=== PATIENT | female | born 1935 | race Caucasian/White ===

== ENCOUNTER 2018-01-24 14:16 | Inpatient (IN) | payer MEDICARE, OTHER ==
[2018-01-24 14:27] VITALS: BMI 26.5
--- NOTE | 2018-01-24 14:32 | PDOC ---
History of Present Illness - General Chief Complaint: Constipation Stated Complaint: CONSTIPATED, ABD PAIN Time Seen by Provider: 01/24/18 14:30 History Source: Patient - History of Present Illness Initial Comments: 01/24/18 14:46 82 year old female with a PMH of CAD (s/p stent), HTN, HLD, NIDDM and SCC, presents to our ED c/o 2 day h/o severe LLQ pain. Pain is constant, 10/10, sharp , worse with movement and localized to left lower quadrant. Patient notes a 5 day h/o constipation. Last bowel movement 3 days previous. Denies fevers/ chills, nausea/vomiting or dysuria/hematuria. Patient tolerating PO intake. Patient lives independently and has daily visits from a home health aide. At baseline she is able to complete her ADL's without assistance. Patient denies chest pain, shortness of breath, rectal bleeding, recent travel or sick contacts. NKDA Surgical: appendectomy, hysterectomy, cardiac stent Social: denies cigarettes, denies alcohol, denies recreational drugs PMD: Dr. Kenya Wilcox Past History - Past Medical History Allergies/Adverse Reactions: Allergies Allergy/AdvReac Type Severity Reaction Status Date / Time No Known Allergies Allergy Verified 01/24/18 14:27 Home Medications: Ambulatory Orders Amlodipine Besylate 10 mg PO DAILY 01/24/18 Bisacodyl [Laxative] 5 mg PO DAILY 01/24/18 Cholecalciferol (Vitamin D3) [Vitamin D3] 1,000 unit PO DAILY 01/24/18 Clopidogrel Bisulfate [Plavix -] 75 mg PO DAILY 01/24/18 Docusate Sodium 100 mg PO DAILY 01/24/18 Ferrous Sulfate 325 mg PO DAILY 01/24/18 Metformin HCl 500 mg PO BID 01/24/18 Metoprolol Tartrate 100 mg PO DAILY 01/24/18 Metoprolol Tartrate [Lopressor] 50 mg PO HS 01/24/18 Multivit-Min/Iron/Folic/Lutein [Centrum Silver Women Tablet] 1 each PO DAILY Psyllium Husk/Calcium Carb [Metamucil Plus Calcium Capsule] 1 each PO DAILY Rosuvastatin Calcium 10 mg PO DAILY 01/24/18 Sennosides [Senna Laxative] 2 tab PO DAILY 04/15/18 Valsartan 160 mg PO BID 01/24/18 Anemia: Yes Cardiac Disorders: Yes (2 stents, valves) COPD: No Diabetes: Yes HTN: Yes Hypercholesterolemia: Yes - Surgical History Cardiac Surgery: Yes (stent) - Suicide/Smoking/Psychosocial Hx Smoking History: Never smoked Information on smoking cessation initiated: No Hx Alcohol Use: No Drug/Substance Use Hx: No Substance Use Type: None Review of Systems - Review of Systems Constitutional: No: Chills, Fever HEENTM: No: Recent change in vision Respiratory: No: Cough, Shortness of Breath Cardiac (ROS): No: Chest Pain, Lightheadedness, Palpitations ABD/GI: Yes: Constipated. No: Diarrhea, Nausea, Vomiting : No: Burning, Dysuria *Physical Exam - Vital Signs Last Vital Signs Temp Pulse Resp BP Pulse Ox 97.6 F 89 18 137/87 97 01/24/18 14:23 01/24/18 14:23 01/24/18 14:23 01/24/18 14:23 01/24/18 14:23 - Physical Exam Comments: 01/24/18 20:06 GENERAL: Awake, alert, and fully oriented, in no acute distress HEAD: No signs of trauma EYES: PERRLA, EOMI, sclera anicteric, conjunctiva clear ENT: Auricles normal inspection, hearing grossly normal, nares patent, oropharynx clear without exudates. Moist mucosa NECK: Nontender, no stepoffs, Normal ROM, supple, no lymphadenopathy, JVD, or masses LUNGS: Breath sounds equal, clear to auscultation bilaterally. No wheezes, and no crackles HEART: Regular rate and rhythm, normal S1 and S2, no murmurs, rubs or gallops ABDOMEN: LLQ TTP w/guarding; Hyperactive BS EXTREMITIES: Normal range of motion, no edema. No clubbing or cyanosis. No cords, erythema, or tenderness SKIN: Warm, Dry, normal turgor, no rashes or lesions noted. ED Treatment Course - LABORATORY CBC & Chemistry Diagram: 01/24/18 15:00 01/24/18 14:47 Medical Decision Making - Medical Decision Making 01/24/18 15:00 82 year old non-toxic appearing female presents with LLQ abdominal pain + constipation. Physical exam significant for LLQ guarding + peritoneal signs and hyperactive BS. Frontal diagnosis: SBO, mesenteric ischemia, diverticulits , colitis possibly UTI/pyelo. Will check CBC, CMP, Lipase, Lactic Acid + CT scan. 01/24/18 16:42 WBC count 22.8 --> Zosyn for empiric coverage of presumed SBO. Patient remains afebrile, continues to decline pain medication. 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 01/24/18 18:[address] Avelar for further evaluation. 01/24/18 19:10 Patient's family counseled on POC. Will continue to monitor while in ED. 01/24/18 22:38 *DC/Admit/Observation/Transfer Diagnosis at time of Disposition: Diverticulitis - Referrals - Patient Instructions - Post Discharge Activity
--- NOTE | 2018-01-24 14:37 | PDOC ---
Attending Attestation - HPI HPI: 01/24/18 16:27 The patient is a 82 year old female, with a significant past medical history of , who presents to the emergency department with, 2 days of significant left lower quadrant pain. She describes her pain as a sharp, 10/10, constant pain which further worsens with movement. She reports to have been constipated for the past 5 days. She denies recent fevers, chills, headache or dizziness. She denies recent nausea, vomit, diarrhea. She denies recent dysuria, frequency, urgency or hematuria. She denies recent chest pain or shortness of breath. Allergies: NKA Past surgical history: Appendectomy. Hysterectomy. Cardiac stent. Social history: Nonsmoker. Denies EtOH use and recreational drug use. Primary Care Physician: Dr. Balderrama <Machelle Desai - Last Filed: 01/24/18 16:27> - Resident Resident Name: Graciela Hammond - ED Attending Attestation I have performed the following: I have examined & evaluated the patient, The case was reviewed & discussed with the resident, I agree w/resident's findings & plan, Exceptions are as noted - Physicial Exam PE: GENERAL: Awake, alert, and fully oriented, in no acute distress HEAD: No signs of trauma EYES: PERRLA, EOMI, sclera anicteric, conjunctiva clear ENT: Auricles normal inspection, hearing grossly normal, nares patent, oropharynx clear without exudates. Moist mucosa NECK: Normal ROM, supple, no lymphadenopathy, JVD, or masses LUNGS: Breath sounds equal, clear to auscultation bilaterally. No wheezes, and no crackles HEART: Regular rate and rhythm, normal S1 and S2, no murmurs, rubs or gallops ABDOMEN: Soft, distended, tympanitic, diffusely tender, +hyperactive bowel sounds. +Guarding, +rebound. No masses EXTREMITIES: Normal range of motion, no edema. No clubbing or cyanosis. No cords, erythema, or tenderness NEUROLOGICAL: Cranial nerves II through XII grossly intact. Normal speech, normal gait SKIN: Warm, Dry, normal turgor, no rashes or lesions noted. - Medical Decision Making Pt presents with abd pain. Found to have LLQ tenderness and hyperactive bowel sounds- diverticulitis vs SBO. Will obtain CT a/p to further evaluate. <Rosanna Yang - Last Filed: 01/29/18 07:25> Attestations - Attestations 01/24/18 16:28 Documentation prepared by Machelle Desai, acting as medical case worker for Rosanna Yang MD. <Machelle Desai - Last Filed: 01/24/18 16:27>
[2018-01-24 15:21] LABS: HEMOGLOBIN 12.2 GM/dL (10.7-15.3); MCH 31.1 pg (25.7-33.7); MCHC 34.8 g/dl (32.0-36.0); MEAN CELL VOLUME 89.4 fl (80-96); MEAN PLT VOLUME 9.7 fl (7.5-11.1); PLATELET COUNT 178 K/MM3 (134-434); RBC 3.91 M/mm3 (3.60-5.2); RDW 13.5 % (11.6-15.6); WHITE BLOOD COUNT 22.8 K/mm3 (4.0-10.0)
[2018-01-24 15:40] LABS: ALBUMIN 3.1 g/dl (3.4-5.0); ANION GAP 14 (8-16); BILIRUBIN,TOTAL 0.8 mg/dL (0.2-1.0); BLOOD UREA NITROGEN 16 mg/dL (7-18); CALCIUM 8.3 mg/dL (8.5-10.1); CHLORIDE 93 mmol/L (98-107); CO2 22 mmol/L (21-32); CREATININE 0.7 mg/dL (0.55-1.02); GLUCOSE,RANDOM 135 mg/dL (74-106); LIPASE 77 U/L (73-393); POTASSIUM 3.9 mmol/L (3.5-5.1); SGOT/AST 22 U/L (15-37); SGPT/ALT 13 U/L (12-78); SODIUM 129 mmol/L (136-145)
[2018-01-24 15:43] LABS: ALK PHOS 100 U/L (45-117); N-TERMINAL BNP 4113.16 pg/ml (5-450); TOT PROT 6.6 g/dl (6.4-8.2)
[2018-01-24 15:57] LABS: PLATELET ESTIMATE ADEQUATE
[2018-01-24] MEDS ORDERED: PIPERACILLIN/TAZOB 4.5 GM/100 ML PREMIX BAG IVPB ONE (16:33)
[2018-01-24 16:41] LABS: PH,URINE 5.5 (5.0-8.0); URINE APPEARANCE CLEAR; URINE BILIRUBIN 1+ (<2.0 mg/dL); URINE BLOOD TRACE-INTA (NEGATIVE); URINE COLOR LT. YELLOW; URINE GLUCOSE (UA) NEGATIVE (NEGATIVE); URINE KETONE 1+ (NEGATIVE); URINE NITRITE NEGATIVE (NEGATIVE); URINE UROBILINOGEN 0.2 mg/dL (0.2-1.0)
[2018-01-24 16:43] LABS: URINE LEUK ESTERASE TRACE (NEGATIVE); URINE PROTEIN 1+ (NEGATIVE)
[2018-01-24] MEDS ORDERED: PIPERACILLIN/TAZOB 4.5 GM 4.5 GM/100 ML BAG IVPB ONE (16:46)
[2018-01-24 17:01] LABS: EPI CELLS RARE /HPF (FEW)
[2018-01-24 17:02] LABS: URINE BACTERIA FEW /hpf (NONE SEEN); URINE MUCUS 1+
[2018-01-24] MEDS ORDERED: SODIUM CHLORIDE 0.9% 500 ML INFUS.BAG IV ONE (18:51)
--- NOTE | 2018-01-24 19:43 | PN ---
Teaching Attending Note Name of Resident: Niru Birmingham ATTENDING PHYSICIAN STATEMENT I saw and evaluated the patient. I reviewed the resident's note and discussed the case with the resident. I agree with the resident's findings and plan as documented. SUBJECTIVE: 82 yo F with pmhx. of CAD (s/p stent), Cardiac Valvular disorder, HTN, HLD, NIDDM, and SCC who presents with Left Lower Quadrant pain. States pain is 10/10 in severity. Also with associated constipation X 5 days. States last BM was 3 days ago. No nausea, vomiting, or diarrhea. No chest pain, pressure or shortness of breath. No fevers or chills. No urinary frequency or dysuria. OBJECTIVE: Physical: VS: Vital Signs Period Temp Pulse Resp BP Sys/Tom Pulse Ox Last 24 Hr 97.6 F-98.0 F 89-97 17-18 125-137/68-87 97-98 GEN: NAD, Resting in bed, AA0X3 HEENT: NCAT, PERRL, Throat without erythema or exudates CARD: II/ AD, RRR S1, S2 RESP:Mild bibasilar crackles ABD: BSx4, NTD to palpation, Mild- Distension EXT: - C/C/E CBCD WBC 22.8 K/mm3 (4.0-10.0) H 01/24/18 15:00 RBC 3.91 M/mm3 (3.60-5.2) 01/24/18 15:00 Hgb 12.2 GM/dL (10.7-15.3) 01/24/18 15:00 Hct 35.0 % (32.4-45.2) 01/24/18 15:00 MCV 89.4 fl (80-96) 01/24/18 15:00 MCHC 34.8 g/dl (32.0-36.0) 01/24/18 15:00 RDW 13.5 % (11.6-15.6) 01/24/18 15:00 Plt Count 178 K/MM3 (134-434) 01/24/18 15:00 MPV 9.7 fl (7.5-11.1) 01/24/18 15:00 CMP Sodium 129 mmol/L (136-145) L 01/24/18 14:47 Potassium 3.9 mmol/L (3.5-5.1) 01/24/18 14:47 Chloride 93 mmol/L (98-107) L 01/24/18 14:47 Carbon Dioxide 22 mmol/L (21-32) 01/24/18 14:47 Anion Gap 14 (8-16) 01/24/18 14:47 BUN 16 mg/dL (7-18) 01/24/18 14:47 Creatinine 0.7 mg/dL (0.55-1.02) 01/24/18 14:47 Creat Clearance w eGFR > 60 (>60) 01/24/18 14:47 Random Glucose 135 mg/dL (74-106) H 01/24/18 14:47 Calcium 8.3 mg/dL (8.5-10.1) L 01/24/18 14:47 Total Bilirubin 0.8 mg/dL (0.2-1.0) 01/24/18 14:47 AST 22 U/L (15-37) 01/24/18 14:47 ALT 13 U/L (12-78) 01/24/18 14:47 Alkaline Phosphatase 100 U/L (45-117) 01/24/18 14:47 Total Protein 6.6 g/dl (6.4-8.2) 01/24/18 14:47 Albumin 3.1 g/dl (3.4-5.0) L 01/24/18 14:47 CARDIAC ENZYMES Creatine Kinase 68 IU/L (26-192) 01/24/18 14:47 Troponin I < 0.02 ng/ml (0.00-0.05) 01/24/18 14:47 CT ABD/PELVIS- Sigmoid diverticulitis, Fecal Impaction CXR- PENDING EKG- PENDING Home Medications Medication Instructions Recorded Amlodipine Besylate 10 mg PO DAILY 01/24/18 Bisacodyl [Laxative] 5 mg PO DAILY 01/24/18 Cholecalciferol (Vitamin D3) 1,000 unit PO DAILY 01/24/18 [Vitamin D3] Clopidogrel Bisulfate [Plavix -] 75 mg PO DAILY 01/24/18 Docusate Sodium 100 mg PO DAILY 01/24/18 Ferrous Sulfate 325 mg PO DAILY 01/24/18 Metformin HCl 500 mg PO BID 01/24/18 Metoprolol Tartrate 100 mg PO DAILY 01/24/18 Metoprolol Tartrate [Lopressor] 50 mg PO HS 01/24/18 Multivit-Min/Iron/Folic/Lutein 1 each PO DAILY 01/24/18 [Centrum Silver Women Tablet] Psyllium Husk/Calcium Carb 1 each PO DAILY 01/24/18 [Metamucil Plus Calcium Capsule] Rosuvastatin Calcium 10 mg PO DAILY 01/24/18 Sennosides [Senna Laxative] 2 tab PO DAILY 01/24/18 Valsartan 160 mg PO BID 01/24/18 ASSESSMENT AND PLAN: 82 yo F with pmhx. of CAD (s/p stent), Cardiac Valvular disorder, HTN, HLD, NIDDM, and SCC who presents with diverticulitis 1.) Sepsis due to Diverticulitis - Levaquin/Flagyl - Monitor QtC - COLLAZO Cx - LA - Clear liquid diet 2.) Constipation/Impaction - Bowel Regimen 3.) NIDDM - FS - RAISS 4.) Hyponatremia - Urine/Serum OSm 5.) CAD s/P Stent - C/w Home meds - Awaiting EKG 5.) HLD - C/W Statin 6.) Hx. of SCC - As per outpt. Derm 7.) Dvt Ppx - Heparin [address] in Med-Sx
--- NOTE | 2018-01-24 20:05 | HP ---
CHIEF COMPLAINT: abdominal pain PCP: Dr. Kenya Wilcox HISTORY OF PRESENT ILLNESS: Patient is an 82 yo F with a PMHx of CAD (s/p stent) , "valve problem", HTN, HLD, DM, SCC, bleeding ulcers (10 years ago), and anemia , presented with 2 day onset of sharp, 10/10, constant LLQ abdominal pain that gets worse with movement. History taken from daughter. Daughter states patient has been constipated the last 5 days. Patient also has nausea with 1 episode of clear vomiting yesterday. Last colonoscopy was 5 years ago which she says was normal. Patient denies fevers, chills, dysuria, hematuria, hematochezia, melena. ER course was notable for: (1) Flagyl, Levaquin (Qtc 446), 1x Zosyn (2) CT Abd/P: Multiple sigmoid diverticuli, Fecal impaction, sigmoid colitis Recent Travel: n/a PAST MEDICAL HISTORY: per HPI PAST SURGICAL HISTORY: appendectomy, hysterectomy Social History: Smoking: denies Alcohol: denies Drugs: denies Family History: Allergies No Known Allergies Allergy (Verified 01/24/18 14:27) HOME MEDICATIONS: Home Medications Medication Instructions Recorded Amlodipine Besylate 10 mg PO DAILY 01/24/18 Bisacodyl [Laxative] 5 mg PO DAILY 01/24/18 Cholecalciferol (Vitamin D3) 1,000 unit PO DAILY 01/24/18 [Vitamin D3] Clopidogrel Bisulfate [Plavix -] 75 mg PO DAILY 01/24/18 Docusate Sodium 100 mg PO DAILY 01/24/18 Ferrous Sulfate 325 mg PO DAILY 01/24/18 Metformin HCl 500 mg PO BID 01/24/18 Metoprolol Tartrate 150 mg PO DAILY 01/24/18 Multivit-Min/Iron/Folic/Lutein 1 each PO DAILY 01/24/18 [Centrum Silver Women Tablet] Psyllium Husk/Calcium Carb 1 each PO DAILY 01/24/18 [Metamucil Plus Calcium Capsule] Rosuvastatin Calcium 10 mg PO DAILY 01/24/18 Sennosides [Senna Laxative] 2 tab PO DAILY 01/24/18 Valsartan 80 mg PO BID 01/24/18 REVIEW OF SYSTEMS CONSTITUTIONAL: Absent: fever, chills, diaphoresis, generalized weakness, malaise, loss of appetite, weight change HEENT: Absent: rhinorrhea, nasal congestion, throat pain, throat swelling, difficulty swallowing, mouth swelling, ear pain, eye pain, visual changes CARDIOVASCULAR: Absent: chest pain, syncope, palpitations, irregular heart rate, lightheadedness , peripheral edema RESPIRATORY: Absent: cough, shortness of breath, dyspnea with exertion, orthopnea, wheezing, stridor, hemoptysis GASTROINTESTINAL: abdominal pain, abdominal distension, nausea, vomiting, constipation Absent: melena, hematochezia GENITOURINARY: Absent: dysuria, frequency, urgency, hesitancy, hematuria, flank pain, genital pain MUSCULOSKELETAL: Absent: myalgia, arthralgia, joint swelling, back pain, neck pain SKIN: Absent: rash, itching, pallor HEMATOLOGIC/IMMUNOLOGIC: Absent: easy bleeding, easy bruising, lymphadenopathy, frequent infections ENDOCRINE: Absent: unexplained weight gain, unexplained weight loss, heat intolerance, cold intolerance NEUROLOGIC: Absent: headache, focal weakness or paresthesias, dizziness, unsteady gait, seizure, mental status changes, bladder or bowel incontinence PSYCHIATRIC: Absent: anxiety, depression, suicidal or homicidal ideation, hallucinations. PHYSICAL EXAMINATION Vital Signs - 24 hr 01/24/18 01/24/18 01/24/18 14:23 15:20 19:30 Temperature 97.6 F 98.0 F Pulse Rate 89 Pulse Rate [ 97 H Radial] Respiratory 18 17 Rate Blood Pressure 137/87 Blood Pressure 125/68 [Left Arm] O2 Sat by Pulse 97 98 97 Oximetry (%) GENERAL: Awake, alert, and fully oriented, in no acute distress. HEAD: Normal with no signs of trauma. EYES: extraocular movements intact, sclera anicteric, conjunctiva clear. EARS, NOSE, THROAT: oropharynx clear without exudates. Moist mucous membranes. NECK: supple without lymphadenopathy LUNGS: mild crackles L base. no wheezing HEART: Regular rate and rhythm, 2/6 systolic murmur ABDOMEN: distended, tympanic to percussion, +bs, diffusely tender to light palpation, + guarding UPPER EXTREMITIES: 2+ pulses, warm, well-perfused. No cyanosis. No clubbing. No peripheral edema. LOWER EXTREMITIES: 2+ pulses, warm, well-perfused. No calf tenderness. No peripheral edema. NEUROLOGICAL: Cranial nerves II-XII intact. PSYCHIATRIC: Cooperative. Good eye contact. Appropriate mood and affect. Laboratory Results - last 24 hr 01/24/18 01/24/18 01/24/18 14:47 14:47 15:00 WBC 22.8 H RBC 3.91 Hgb 12.2 Hct 35.0 MCV 89.4 MCH 31.1 MCHC 34.8 RDW 13.5 Plt Count 178 MPV 9.7 Total Counted 100 Neutrophils % No Result Required. Neutrophils % (Manual) 79.0 Band Neutrophils % 11.0 H Lymphocytes % No Result Required. Lymphocytes % (Manual) 4.0 L Monocytes % (Manual) 5 Eosinophils % (Manual) 1.0 Platelet Estimate Adequate Platelet Comment Rare large platelets Sodium 129 L Potassium 3.9 Chloride 93 L Carbon Dioxide 22 Anion Gap 14 BUN 16 Creatinine 0.7 Creat Clearance w eGFR > 60 Random Glucose 135 H Lactic Acid 1.7 Calcium 8.3 L Magnesium 2.0 Total Bilirubin 0.8 AST 22 ALT 13 Alkaline Phosphatase 100 Creatine Kinase 68 Troponin I < 0.02 B-Natriuretic Peptide 4113.16 H Total Protein 6.6 Albumin 3.1 L Lipase 77 Urine Color Urine Appearance Urine pH Ur Specific [place] Urine Protein Urine Glucose (UA) Urine Ketones Urine Blood Urine Nitrite Urine Bilirubin Urine Urobilinogen Ur Leukocyte Esterase Urine WBC (Auto) Urine RBC (Auto) Ur Epithelial Cells Urine Bacteria Urine Mucus 01/24/18 15:40 WBC RBC Hgb Hct MCV MCH MCHC RDW Plt Count MPV Total Counted Neutrophils % Neutrophils % (Manual) Band Neutrophils % Lymphocytes % Lymphocytes % (Manual) Monocytes % (Manual) Eosinophils % (Manual) Platelet Estimate Platelet Comment Sodium Potassium Chloride Carbon Dioxide Anion Gap BUN Creatinine Creat Clearance w eGFR Random Glucose Lactic Acid Calcium Magnesium Total Bilirubin AST ALT Alkaline Phosphatase Creatine Kinase Troponin I B-Natriuretic Peptide Total Protein Albumin Lipase Urine Color Lt. yellow Urine Appearance Clear Urine pH 5.5 Ur Specific [place] 1.020 Urine Protein 1+ H Urine Glucose (UA) Negative Urine Ketones 1+ H Urine Blood Trace-inta Urine Nitrite Negative Urine Bilirubin 1+ H Urine Urobilinogen 0.2 Ur Leukocyte Esterase Trace Urine WBC (Auto) 0-3 Urine RBC (Auto) 0-3 Ur Epithelial Cells Rare Urine Bacteria Few Urine Mucus 1+ ASSESSMENT/PLAN: 82 yo F with a PMHx of CAD (s/p stent), "valve problem", HTN, HLD, DM, SCC, bleeding ulcers (10 years ago), and anemia, presented with 2 days of LLQ abdominal pain. #Acute diverticulitis -CT Abd/P: Multiple sigmoid diverticuli, Fecal impaction, sigmoid colitis -1x Zosyn in ER -Cont. Jean Claude Smart (QTc 446) -NPO -Zofran q6h -GI consulted: Krunal #Constipation -Dulcolax -Colace #DM -BGM -ISS #HTN/HLD -cont w/ home meds -Amlodipine 10mg -Metoprolol 150mg in AM, 50mg at night -180mg Diovan BID #Chronic Anemia -cont. Iron #PPX -SCDs #FEN -No fluids at this time (crackles on PE) -WNL -NPO Med-surge Visit type - Emergency Visit Emergency Visit: Yes ED Registration Date: 01/24/18 Care time: The patient presented to the Emergency Department on the above date and was hospitalized for further evaluation of their emergent condition. - New Patient This patient is new to me today: Yes Date on this admission: 01/25/18 - Critical Care Critical Care patient: No Hospitalist Screening - Colonoscopy Questionnaire Colonoscopy Questionnaire: Colonoscopy Questionnaire - Patient: 50 - 75 years old and never had a screening colonoscopy: No History of colon or rectal polyps, or CA: No History of IBD, Crohn's disease or UC: No History of abdominal radiation therapy as a child: No - Relative: 1 with colon or rectal CA, or polyps at age 60 or younger: No Colon or rectal CA diagnosed at age 45 or younger: No Multiple relatives with colon or rectal CA: No - Outcome: Screening Result: Negative Screen
[2018-01-24] MEDS ORDERED: ONDANSETRON 4 MG/2 ML VIAL IVPUSH PRN (20:15)
[2018-01-24] MEDS ORDERED: INSULIN SLIDING SCALE (NOVOLOG) 1 VIAL SQ SCH (22:00)
[2018-01-24] MEDS ORDERED: METOPROLOL TARTRATE 50 MG TABLET (FP) ONE (22:05)
[2018-01-24] MEDS ORDERED: VALSARTAN 80 MG TABLET (UD) ONE (22:05)
[2018-01-24] MEDS: INSULIN SLIDING SCALE (NOVOLOG) 1 VIAL SQ SCH (22:12)
[2018-01-24] MEDS: VALSARTAN 160 MG TABLET (UD) PO SCH (22:33)
[2018-01-24] MEDS: METOPROLOL TARTRATE 50 MG TABLET (FP) PO SCH (22:33)
[2018-01-24] MEDS: ROSUVASTATIN CA 10 MG TABLET (FP) PO SCH (22:41)
[2018-01-25] MEDS: INSULIN SLIDING SCALE (NOVOLOG) 1 VIAL SQ SCH ×6 (02:56→22:12)
[2018-01-25 07:09] LABS: HEMATOCRIT 33.2 % (32.4-45.2); HEMOGLOBIN 11.7 GM/dL (10.7-15.3); MCH 31.3 pg (25.7-33.7); MCHC 35.3 g/dl (32.0-36.0); MEAN CELL VOLUME 88.8 fl (80-96); MEAN PLT VOLUME 9.9 fl (7.5-11.1); PLATELET COUNT 186 K/MM3 (134-434); RBC 3.74 M/mm3 (3.60-5.2); RDW 13.3 % (11.6-15.6); WHITE BLOOD COUNT 21.4 K/mm3 (4.0-10.0)
[2018-01-25 07:23] LABS: INR 1.21 (0.82-1.09); PROTHROMBIN TIME (PATIENT) 13.7 SEC (9.98-11.88)
[2018-01-25 07:39] LABS: ALBUMIN 2.8 g/dl (3.4-5.0); ALK PHOS 96 U/L (45-117); ANION GAP 13 (8-16); BILIRUBIN,TOTAL 0.8 mg/dL (0.2-1.0); BLOOD UREA NITROGEN 12 mg/dL (7-18); CALCIUM 7.8 mg/dL (8.5-10.1); CHLORIDE 100 mmol/L (98-107); CO2 20 mmol/L (21-32); CREATININE 0.6 mg/dL (0.55-1.02); GLUCOSE,RANDOM 107 mg/dL (74-106); MAGNESIUM 2.2 mg/dL (1.8-2.4); PHOSPHOROUS 1.8 mg/dL (2.5-4.9); POTASSIUM 3.7 mmol/L (3.5-5.1); SGOT/AST 16 U/L (15-37); SGPT/ALT 13 U/L (12-78); SODIUM 133 mmol/L (136-145); TOT PROT 6.3 g/dl (6.4-8.2)
[2018-01-25] MEDS ORDERED: POTASSIUM PHOSPHATE 15 MM in SODIUM CHLORIDE 250 ML IVPB ONE (09:23)
[2018-01-25] MEDS ORDERED: BISACODYL 5 MG TABLET.DR (FP) PO SCH (10:00)
[2018-01-25] MEDS ORDERED: PATIENT'S OWN MEDICATION (NON-FORMULARY) (Metoprolol Tartrate [Metoprolol Tartrate] 100 MG PO SCH (10:00)
[2018-01-25] MEDS ORDERED: PATIENT'S OWN MEDICATION (NON-FORMULARY) (Multivit-Min/Iron/Folic/Lutein [Centrum Silver W PO SCH (10:00)
[2018-01-25] MEDS ORDERED: BISACODYL 5 MG PO SCH (10:00)
[2018-01-25] MEDS ORDERED: HEMOQUE TEST 1 EACH EACH ONE (10:29)
[2018-01-25] MEDS: DOCUSATE SODIUM 100 MG CAPSULE (FP) PO SCH (10:51)
[2018-01-25] MEDS: VALSARTAN 160 MG TABLET (UD) PO SCH ×2 (10:51→21:56)
[2018-01-25] MEDS: MULTIVITAMINS THER W-MINERALS COMBO TABLET (FP) PO SCH (10:52)
[2018-01-25] MEDS: CHOLECALCIFEROL (VITAMIN D3) 1,000 UNIT TABLET (FP) PO SCH (10:52)
[2018-01-25] MEDS: amLODIPine BESYLATE 10 MG TABLET (FP) PO SCH (10:52)
[2018-01-25] MEDS: CLOPIDOGREL BISULFATE 75 MG TABLET (FP) PO SCH (10:52)
[2018-01-25] MEDS: METOPROLOL TARTRATE 50 MG TABLET (FP) PO SCH ×2 (10:52→21:56)
[2018-01-25] MEDS ORDERED: SODIUM PHOSPHATE - 30 MM in SODIUM CHLORIDE 500 ML IVPB ONE (11:00)
--- NOTE | 2018-01-25 12:02 | CON.GI ---
Consult Consult Specialty:: GI Reason for Consultation:: abdominal pain - History of Present Illness History of Present Illness: An 82F, functional and with intact mental facilities, presents with LLQ pain x 5 days, leukocytosis, and CT findings suggestive of diverticulitis and constipation. Pt reports not having a BM x 5 days. Baseline - 1-2 BMs/day with chronic laxatives. No significant changed in diet, no new medications, recent travel. Denies fever, chills, nausea, vomiting, hematemesis, dysphagia, odynophagia, jaundice, pencil-thin, or ribbon-like stools. Denies melena, hematochezia, weight loss. Colonoscopy at least 5 y ago was normal. - History Source History Provided By: Patient, Family Member (pt's son-in-law) - Alcohol/Substance Use Hx Alcohol Use: No - Smoking History Smoking history: Never smoked Home Medications - Allergies Allergies/Adverse Reactions: Allergies Allergy/AdvReac Type Severity Reaction Status Date / Time No Known Allergies Allergy Verified 01/24/18 14:27 - Home Medications Home Medications: Ambulatory Orders Amlodipine Besylate 10 mg PO DAILY 01/24/18 Bisacodyl [Laxative] 5 mg PO DAILY 01/24/18 Cholecalciferol (Vitamin D3) [Vitamin D3] 1,000 unit PO DAILY 01/24/18 Clopidogrel Bisulfate [Plavix -] 75 mg PO DAILY 01/24/18 Docusate Sodium 100 mg PO DAILY 01/24/18 Ferrous Sulfate 325 mg PO DAILY 01/24/18 Metformin HCl 500 mg PO BID 01/24/18 Metoprolol Tartrate 100 mg PO DAILY 01/24/18 Metoprolol Tartrate [Lopressor] 50 mg PO HS 01/24/18 Multivit-Min/Iron/Folic/Lutein [Centrum Silver Women Tablet] 1 each PO DAILY Psyllium Husk/Calcium Carb [Metamucil Plus Calcium Capsule] 1 each PO DAILY Rosuvastatin Calcium 10 mg PO DAILY 01/24/18 Sennosides [Senna Laxative] 2 tab PO DAILY 01/24/18 Valsartan 160 mg PO BID 01/24/18 Family Disease History - Family Disease History Family History: Unremarkable Review of Systems Findings/Remarks: as per HPI, H&P Physical Exam-GI Vital Signs: Vital Signs Temperature 98.4 F 01/25/18 08:48 Pulse Rate 89 01/25/18 10:45 Respiratory Rate 18 01/25/18 10:45 Blood Pressure 132/60 01/25/18 10:45 O2 Sat by Pulse Oximetry (%) 98 01/25/18 10:45 Constitutional: Yes: Well Nourished, No Distress, Calm Eyes: Yes: Conjunctiva Clear HENT: Yes: Atraumatic Neck: Yes: Supple Cardiovascular: Yes: Regular Rate and Rhythm Respiratory: Yes: Regular Gastrointestinal Inspection: Yes: Distention. No: Ascites ...Palpate: Yes: Tenderness. No: Firm/Rigid, Guarding, Mass ...Percussion: No: Fluid Wave ...Rectal Exam: Yes: Hemorrhoids/External, Sphincter Tone Normal, Other (small amount of soft, brown stool in rectal vault.). No: Mass Neurological: Yes: Alert, Oriented Labs: CBC, BMP 01/25/18 06:00 01/25/18 06:00 INR, PTT INR 1.21 (0.82-1.09) H 01/25/18 06:00 Laboratory Last Values WBC 21.4 K/mm3 (4.0-10.0) H 01/25/18 06:00 RBC 3.74 M/mm3 (3.60-5.2) 01/25/18 06:00 Hgb 11.7 GM/dL (10.7-15.3) 01/25/18 06:00 Hct 33.2 % (32.4-45.2) 01/25/18 06:00 MCV 88.8 fl (80-96) 01/25/18 06:00 MCH 31.3 pg (25.7-33.7) 01/25/18 06:00 MCHC 35.3 g/dl (32.0-36.0) 01/25/18 06:00 RDW 13.3 % (11.6-15.6) 01/25/18 06:00 Plt Count 186 K/MM3 (134-434) 01/25/18 06:00 MPV 9.9 fl (7.5-11.1) 01/25/18 06:00 Total Counted 100 01/24/18 15:00 Neutrophils % No Result Required. 01/24/18 15:00 Neutrophils % (Manual) 79.0 % (42.8-82.8) 01/24/18 15:00 Band Neutrophils % 11.0 % (0-10) H 01/24/18 15:00 Lymphocytes % No Result Required. 01/24/18 15:00 Lymphocytes % (Manual) 4.0 % (8-40) L 01/24/18 15:00 Monocytes % (Manual) 5 % (3.8-10.2) 01/24/18 15:00 Eosinophils % (Manual) 1.0 % (0-4.5) 01/24/18 15:00 Platelet Estimate Adequate 01/24/18 15:00 Platelet Comment Rare large platelets 01/24/18 15:00 PT with INR 13.70 SEC (9.98-11.88) H 01/25/18 06:00 INR 1.21 (0.82-1.09) H 01/25/18 06:00 Sodium 133 mmol/L (136-145) L 01/25/18 06:00 Potassium 3.7 mmol/L (3.5-5.1) 01/25/18 06:00 Chloride 100 mmol/L (98-107) 01/25/18 06:00 Carbon Dioxide 20 mmol/L (21-32) L 01/25/18 06:00 Anion Gap 13 (8-16) 01/25/18 06:00 BUN 12 mg/dL (7-18) 01/25/18 06:00 Creatinine 0.6 mg/dL (0.55-1.02) 01/25/18 06:00 Creat Clearance w eGFR > 60 (>60) 01/25/18 06:00 POC Glucometer 128.21770 UNITS (80-120) 01/25/18 10:32 Random Glucose 107 mg/dL (74-106) H 01/25/18 06:00 Lactic Acid 0.8 mmol/L (0.0-2.0) 01/25/18 01:36 Calcium 7.8 mg/dL (8.5-10.1) L 01/25/18 06:00 Phosphorus 1.8 mg/dL (2.5-4.9) L 01/25/18 06:00 Magnesium 2.2 mg/dL (1.8-2.4) 01/25/18 06:00 Total Bilirubin 0.8 mg/dL (0.2-1.0) 01/25/18 06:00 AST 16 U/L (15-37) 01/25/18 06:00 ALT 13 U/L (12-78) 01/25/18 06:00 Alkaline Phosphatase 96 U/L (45-117) 01/25/18 06:00 Creatine Kinase 68 IU/L (26-192) 01/24/18 14:47 Troponin I < 0.02 ng/ml (0.00-0.05) 01/24/18 14:47 B-Natriuretic Peptide 4113.16 pg/ml (5-450) H 01/24/18 14:47 Total Protein 6.3 g/dl (6.4-8.2) L 01/25/18 06:00 Albumin 2.8 g/dl (3.4-5.0) L 01/25/18 06:00 Lipase 77 U/L (73-393) 01/24/18 14:47 Urine Color Lt. yellow 01/24/18 15:40 Urine Appearance Clear 01/24/18 15:40 Urine pH 5.5 (5.0-8.0) 01/24/18 15:40 Ur Specific [place] 1.020 (1.001-1.035) 01/24/18 15:40 Urine Protein 1+ (NEGATIVE) H 01/24/18 15:40 Urine Glucose (UA) Negative (NEGATIVE) 01/24/18 15:40 Urine Ketones 1+ (NEGATIVE) H 01/24/18 15:40 Urine Blood Trace-inta (NEGATIVE) 01/24/18 15:40 Urine Nitrite Negative (NEGATIVE) 01/24/18 15:40 Urine Bilirubin 1+ (<2.0 mg/dL) H 01/24/18 15:40 Urine Urobilinogen 0.2 mg/dL (0.2-1.0) 01/24/18 15:40 Ur Leukocyte Esterase Trace (NEGATIVE) 01/24/18 15:40 Urine WBC (Auto) 0-3 /hpf (3-5) 01/24/18 15:40 Urine RBC (Auto) 0-3 /hpf (0-3) 01/24/18 15:40 Ur Epithelial Cells Rare /HPF (FEW) 01/24/18 15:40 Urine Bacteria Few /hpf (NONE SEEN) 01/24/18 15:40 Urine Mucus 1+ 01/24/18 15:40 Imaging - Results Cat Scan: Report Reviewed Problem List - Problems (1) Diverticulosis large intestine w/o perforation or abscess w/o bleeding Code(s): K57.30 - DVRTCLOS OF LG INT W/O PERFORATION OR ABSCESS W/O BLEEDING (2) Constipation Code(s): K59.00 - CONSTIPATION, UNSPECIFIED (3) Diverticulitis Code(s): K57.92 - DVTRCLI OF INTEST, PART UNSP, W/O PERF OR ABSCESS W/O BLEED Assessment/Plan Treat diverticulitis/stercoral colitis Adequate hydration Miralax po qid Avoid enema for now Low residual diet discussed with the patient and her son-in-law colonoscopy in 4-6 weeks
--- NOTE | 2018-01-25 12:25 | EKG ---
Test Reason : Blood Pressure : / mmHG Vent. Rate : 082 BPM Atrial Rate : 082 BPM P-R Int : 236 ms QRS Dur : 108 ms QT Int : 382 ms P-R-T Axes : 058 016 035 degrees QTc Int : 446 ms SINUS RHYTHM WITH 1ST DEGREE A-V BLOCK WITH PREMATURE SUPRAVENTRICULAR COMPLEXES INCOMPLETE LEFT BUNDLE BRANCH BLOCK BORDERLINE ECG WHEN COMPARED WITH ECG OF 10-NOV-2009 10:56, PREMATURE SUPRAVENTRICULAR COMPLEXES ARE NOW PRESENT INCOMPLETE LEFT BUNDLE BRANCH BLOCK IS NOW PRESENT Confirmed by ESTRADA CAMPOS MD ([id number]) on 01/25/2018 12:24:23 PM Referred By: Confirmed By:ESTRADA CAMPOS MD
[2018-01-25] MEDS ORDERED: POLYETHYLENE GLYCOL 3350 255 GM BTL PO ONE (13:30)
[2018-01-25] MEDS ORDERED: ONDANSETRON 4 MG/2 ML VIAL IVPUSH PRN (13:55)
[2018-01-25] MEDS ORDERED: POLYETHYLENE GLYCOL 3350 119 GM BTL PO SCH (14:00)
--- NOTE | 2018-01-25 14:22 | PN ---
Physical Exam: SUBJECTIVE: Patient seen and examined No acute events overnight. Patient continues to have abdominal pain. Denies fever, chills, chest pain, shortness of breath. OBJECTIVE: Vital Signs Period Temp Pulse Resp BP Sys/Tom Pulse Ox Last 24 Hr 97.6 F-98.4 F 89-99 17-18 119-137/57-87 96-98 GENERAL: Awake, alert, and fully oriented, in no acute distress. HEAD: Normal with no signs of trauma. EYES: Extraocular movements intact, sclera anicteric, conjunctiva clear. EARS, NOSE, THROAT: Oropharynx clear without exudates. Moist mucous membranes. NECK: supple without lymphadenopathy LUNGS: CTAB HEART: Regular rate and rhythm, +2/6 systolic murmur ABDOMEN: distended, tympanic to percussion, +bs, diffusely tender to light palpation, + guarding UPPER EXTREMITIES: 2+ pulses, warm, well-perfused. No cyanosis. No clubbing. No peripheral edema. LOWER EXTREMITIES: 2+ pulses, warm, well-perfused. No calf tenderness. No peripheral edema. NEUROLOGICAL: Cranial nerves II-XII intact. PSYCHIATRIC: Cooperative. Good eye contact. Appropriate mood and affect. Laboratory Results - last 24 hr 01/24/18 01/24/18 01/24/18 14:47 14:47 15:00 WBC 22.8 H RBC 3.91 Hgb 12.2 Hct 35.0 MCV 89.4 MCH 31.1 MCHC 34.8 RDW 13.5 Plt Count 178 MPV 9.7 Total Counted 100 Neutrophils % No Result Required. Neutrophils % (Manual) 79.0 Band Neutrophils % 11.0 H Lymphocytes % No Result Required. Lymphocytes % (Manual) 4.0 L Monocytes % (Manual) 5 Eosinophils % (Manual) 1.0 Platelet Estimate Adequate Platelet Comment Rare large platelets PT with INR INR Sodium 129 L Potassium 3.9 Chloride 93 L Carbon Dioxide 22 Anion Gap 14 BUN 16 Creatinine 0.7 Creat Clearance w eGFR > 60 POC Glucometer Random Glucose 135 H Lactic Acid 1.7 Calcium 8.3 L Phosphorus Magnesium 2.0 Total Bilirubin 0.8 AST 22 ALT 13 Alkaline Phosphatase 100 Creatine Kinase 68 Troponin I < 0.02 B-Natriuretic Peptide 4113.16 H Total Protein 6.6 Albumin 3.1 L Lipase 77 Urine Color Urine Appearance Urine pH Ur Specific [place] Urine Protein Urine Glucose (UA) Urine Ketones Urine Blood Urine Nitrite Urine Bilirubin Urine Urobilinogen Ur Leukocyte Esterase Urine WBC (Auto) Urine RBC (Auto) Ur Epithelial Cells Urine Bacteria Urine Mucus 01/24/18 01/25/18 01/25/18 15:40 01:36 02:53 WBC RBC Hgb Hct MCV MCH MCHC RDW Plt Count MPV Total Counted Neutrophils % Neutrophils % (Manual) Band Neutrophils % Lymphocytes % Lymphocytes % (Manual) Monocytes % (Manual) Eosinophils % (Manual) Platelet Estimate Platelet Comment PT with INR INR Sodium Potassium Chloride Carbon Dioxide Anion Gap BUN Creatinine Creat Clearance w eGFR POC Glucometer 132.19727 Random Glucose Lactic Acid 0.8 Calcium Phosphorus Magnesium Total Bilirubin AST ALT Alkaline Phosphatase Creatine Kinase Troponin I B-Natriuretic Peptide Total Protein Albumin Lipase Urine Color Lt. yellow Urine Appearance Clear Urine pH 5.5 Ur Specific [place] 1.020 Urine Protein 1+ H Urine Glucose (UA) Negative Urine Ketones 1+ H Urine Blood Trace-inta Urine Nitrite Negative Urine Bilirubin 1+ H Urine Urobilinogen 0.2 Ur Leukocyte Esterase Trace Urine WBC (Auto) 0-3 Urine RBC (Auto) 0-3 Ur Epithelial Cells Rare Urine Bacteria Few Urine Mucus 1+ 01/25/18 01/25/18 01/25/18 06:00 06:00 06:00 WBC 21.4 H RBC 3.74 Hgb 11.7 Hct 33.2 MCV 88.8 MCH 31.3 MCHC 35.3 RDW 13.3 Plt Count 186 MPV 9.9 Total Counted Neutrophils % Neutrophils % (Manual) Band Neutrophils % Lymphocytes % Lymphocytes % (Manual) Monocytes % (Manual) Eosinophils % (Manual) Platelet Estimate Platelet Comment PT with INR 13.70 H INR 1.21 H Sodium 133 L Potassium 3.7 Chloride 100 Carbon Dioxide 20 L Anion Gap 13 BUN 12 Creatinine 0.6 Creat Clearance w eGFR > 60 POC Glucometer Random Glucose 107 H Lactic Acid Calcium 7.8 L Phosphorus 1.8 L Magnesium 2.2 Total Bilirubin 0.8 AST 16 ALT 13 Alkaline Phosphatase 96 Creatine Kinase Troponin I B-Natriuretic Peptide Total Protein 6.3 L Albumin 2.8 L Lipase Urine Color Urine Appearance Urine pH Ur Specific [place] Urine Protein Urine Glucose (UA) Urine Ketones Urine Blood Urine Nitrite Urine Bilirubin Urine Urobilinogen Ur Leukocyte Esterase Urine WBC (Auto) Urine RBC (Auto) Ur Epithelial Cells Urine Bacteria Urine Mucus 01/25/18 01/25/18 06:55 10:32 WBC RBC Hgb Hct MCV MCH MCHC RDW Plt Count MPV Total Counted Neutrophils % Neutrophils % (Manual) Band Neutrophils % Lymphocytes % Lymphocytes % (Manual) Monocytes % (Manual) Eosinophils % (Manual) Platelet Estimate Platelet Comment PT with INR INR Sodium Potassium Chloride Carbon Dioxide Anion Gap BUN Creatinine Creat Clearance w eGFR POC Glucometer 122.94097 128.73062 Random Glucose Lactic Acid Calcium Phosphorus Magnesium Total Bilirubin AST ALT Alkaline Phosphatase Creatine Kinase Troponin I B-Natriuretic Peptide Total Protein Albumin Lipase Urine Color Urine Appearance Urine pH Ur Specific [place] Urine Protein Urine Glucose (UA) Urine Ketones Urine Blood Urine Nitrite Urine Bilirubin Urine Urobilinogen Ur Leukocyte Esterase Urine WBC (Auto) Urine RBC (Auto) Ur Epithelial Cells Urine Bacteria Urine Mucus Active Medications Generic Name Dose Route Start Last Admin Trade Name Freq PRN Reason Stop Dose Admin Amlodipine Besylate 10 mg 01/25/18 10:00 01/25/18 10:52 Norvasc - PO 10 mg DAILY [facility] Administration Bisacodyl 5 mg 01/25/18 10:00 01/25/18 10:51 Dulcolax - PO 5 mg DAILY [facility] Administration Cholecalciferol 1,000 unit 01/25/18 10:00 01/25/18 10:52 Vitamin D3 - PO 1,000 unit DAILY [facility] Administration Clopidogrel Bisulfate 75 mg 01/25/18 10:00 01/25/18 10:52 Plavix - PO 75 mg DAILY [facility] Administration Docusate Sodium 100 mg 01/25/18 10:00 01/25/18 10:51 Colace - PO 100 mg DAILY [facility] Administration Metronidazole 500 mg in 100 mls @ 100 mls/hr 01/25/18 01:00 01/25/18 10:30 Flagyl 500mg Premixed Ivpb - IVPB 100 mls/hr Q6H-IV [facility] Administration Levofloxacin 500 mg in 100 mls @ 100 mls/hr 01/25/18 10:00 01/25/18 12:07 Levaquin 500 Mg Premixed Ivpb - IVPB 100 mls/hr DAILY [facility] Administration Sodium Phosphate 30 mm/ Sodium 510 mls @ 62.5 mls/hr 01/25/18 11:00 Chloride IVPB 01/25/18 19:09 ONCE ONE Insulin Aspart 1 vial 01/24/18 22:00 01/25/18 10:33 Novolog Vial Sliding Scale - SQ Not Given Q4HPO [facility] Protocol Metoprolol Tartrate 50 mg 01/24/18 22:00 01/24/18 22:33 Lopressor - PO Not Given HS [facility] Metoprolol Tartrate 100 mg 01/25/18 10:00 01/25/18 10:52 Lopressor - PO 100 mg DAILY [facility] Administration Multivitamins/Minerals 1 each 01/25/18 10:00 01/25/18 10:52 Theragran-M PO 1 each DAILY [facility] Administration Rosuvastatin Calcium 10 mg 01/24/18 22:00 01/24/18 22:41 Crestor - PO 10 mg HS [facility] Administration Valsartan 160 mg 01/24/18 22:00 01/25/18 10:51 Diovan - PO 160 mg BID [facility] Administration ASSESSMENT/PLAN: 82 yo F with a PMHx of CAD (s/p stent), "valve problem", HTN, HLD, DM, SCC, bleeding ulcers (10 years ago), and anemia, presented with 2 days of LLQ abdominal pain. #Sepsis 2/2 to Acute diverticulitis -CT A/P: Multiple sigmoid diverticuli, Fecal impaction, sigmoid colitis -Continue Flagyl, Levaquin (QTc 446) -Low residual diet -Zofran q6h -Adequate hydration -Miralax po qid -Avoid enema for now -Colonoscopy in 4-6 weeks -GI consulted: Dr. Hector #DM -BGM -ISS #HTN/HLD -cont w/ home meds -Amlodipine 10mg -Metoprolol 150mg in AM, 50mg at night -160mg Diovan BID -Crestor 10 mg hs #PPX -SCDs #FEN -No fluids -continue to monitor -NPO Visit type - Emergency Visit Emergency Visit: Yes ED Registration Date: 01/24/18 Care time: The patient presented to the Emergency Department on the above date and was hospitalized for further evaluation of their emergent condition. - New Patient This patient is new to me today: Yes Date on this admission: 01/25/18 - Critical Care Critical Care patient: No
--- NOTE | 2018-01-25 18:45 | PN ---
Teaching Attending Note Name of Resident: Jorge A Soto ATTENDING PHYSICIAN STATEMENT I saw and evaluated the patient. I reviewed the resident's note and discussed the case with the resident. I agree with the resident's findings and plan as documented. SUBJECTIVE: OBJECTIVE: Vital Signs Period Temp Pulse Resp BP Sys/Tom Pulse Ox Last 24 Hr 97.6 F-98.7 F 89-99 17-20 119-133/57-78 96-98 Laboratory Results - last 24 hr 01/25/18 01/25/18 01/25/18 01:36 02:53 06:00 WBC 21.4 H RBC 3.74 Hgb 11.7 Hct 33.2 MCV 88.8 MCH 31.3 MCHC 35.3 RDW 13.3 Plt Count 186 MPV 9.9 PT with INR INR Sodium Potassium Chloride Carbon Dioxide Anion Gap BUN Creatinine Creat Clearance w eGFR POC Glucometer 132.94968 Random Glucose Lactic Acid 0.8 Calcium Phosphorus Magnesium Total Bilirubin AST ALT Alkaline Phosphatase Total Protein Albumin 01/25/18 01/25/18 01/25/18 06:00 06:00 06:55 WBC RBC Hgb Hct MCV MCH MCHC RDW Plt Count MPV PT with INR 13.70 H INR 1.21 H Sodium 133 L Potassium 3.7 Chloride 100 Carbon Dioxide 20 L Anion Gap 13 BUN 12 Creatinine 0.6 Creat Clearance w eGFR > 60 POC Glucometer 122.71690 Random Glucose 107 H Lactic Acid Calcium 7.8 L Phosphorus 1.8 L Magnesium 2.2 Total Bilirubin 0.8 AST 16 ALT 13 Alkaline Phosphatase 96 Total Protein 6.3 L Albumin 2.8 L 01/25/18 01/25/18 10:32 14:36 WBC RBC Hgb Hct MCV MCH MCHC RDW Plt Count MPV PT with INR INR Sodium Potassium Chloride Carbon Dioxide Anion Gap BUN Creatinine Creat Clearance w eGFR POC Glucometer 128.79129 151.83048 Random Glucose Lactic Acid Calcium Phosphorus Magnesium Total Bilirubin AST ALT Alkaline Phosphatase Total Protein Albumin Current Medications Generic Name Dose Route Start Last Admin Trade Name Freq PRN Reason Stop Dose Admin Amlodipine Besylate 10 mg 01/25/18 10:00 01/25/18 10:52 Norvasc - PO 10 mg DAILY [facility] Administration Bisacodyl 5 mg 01/25/18 10:00 01/25/18 10:51 Dulcolax - PO 5 mg DAILY [facility] Administration Cholecalciferol 1,000 unit 01/25/18 10:00 01/25/18 10:52 Vitamin D3 - PO 1,000 unit DAILY [facility] Administration Clopidogrel Bisulfate 75 mg 01/25/18 10:00 01/25/18 10:52 Plavix - PO 75 mg DAILY [facility] Administration Docusate Sodium 100 mg 01/25/18 10:00 01/25/18 10:51 Colace - PO 100 mg DAILY [facility] Administration Metronidazole 500 mg in 100 mls @ 100 mls/hr 01/25/18 01:00 01/25/18 17:43 Flagyl 500mg Premixed Ivpb - IVPB Not Given Q6H-IV [facility] Levofloxacin 500 mg in 100 mls @ 100 mls/hr 01/25/18 10:00 01/25/18 12:07 Levaquin 500 Mg Premixed Ivpb - IVPB 100 mls/hr DAILY [facility] Administration Sodium Phosphate 30 mm/ Sodium 510 mls @ 62.5 mls/hr 01/25/18 11:00 01/25/18 14:37 Chloride IVPB 01/25/18 19:09 62.5 mls/hr ONCE ONE Administration Insulin Aspart 1 vial 01/24/18 22:00 01/25/18 14:37 Novolog Vial Sliding Scale - SQ Not Given Q4HPO [facility] Protocol Metoprolol Tartrate 50 mg 01/24/18 22:00 01/24/18 22:33 Lopressor - PO Not Given HS [facility] Metoprolol Tartrate 100 mg 01/25/18 10:00 01/25/18 10:52 Lopressor - PO 100 mg DAILY [facility] Administration Multivitamins/Minerals 1 each 01/25/18 10:00 01/25/18 10:52 Theragran-M PO 1 each DAILY [facility] Administration Ondansetron HCl 4 mg 01/25/18 13:55 Zofran Injection IVPUSH Q6H PRN NAUSEA AND/OR VOMITING Rosuvastatin Calcium 10 mg 01/24/18 22:00 01/24/18 22:41 Crestor - PO 10 mg HS [facility] Administration Valsartan 160 mg 01/24/18 22:00 01/25/18 10:51 Diovan - PO 160 mg BID [facility] Administration ASSESSMENT AND PLAN:
[2018-01-25] MEDS ORDERED: PT OWN MED DRAWER 7, Y5N ONE (21:11)
[2018-01-25] MEDS: ROSUVASTATIN CA 10 MG TABLET (FP) PO SCH (21:56)
[2018-01-26] MEDS: INSULIN SLIDING SCALE (NOVOLOG) 1 VIAL SQ SCH ×5 (02:20→22:15)
[2018-01-26] MEDS ORDERED: PT OWN MED DRAWER 7, Y5N ONE ×3 (07:05→21:05)
[2018-01-26] MEDS ORDERED: INSULIN (NOVOLOG) ASPART 100 UNITS/ML 10ML VIAL ONE (07:06)
--- NOTE | 2018-01-26 07:20 | PN ---
Physical Exam: SUBJECTIVE: Patient seen and examined No acute events overnight. Patient had multiple BM's overnight. Continues to have abdominal pain. Otherwise has no complaints OBJECTIVE: Vital Signs Period Temp Pulse Resp BP Sys/Tom Pulse Ox Last 24 Hr 97.8 F-98.9 F 89-104 18-20 123-133/56-78 98-100 GENERAL: Awake, alert, and fully oriented, in no acute distress. HEAD: Normal with no signs of trauma. EYES: Extraocular movements intact, sclera anicteric, conjunctiva clear. EARS, NOSE, THROAT: Oropharynx clear without exudates. Moist mucous membranes. NECK: supple without lymphadenopathy LUNGS: CTAB HEART: Regular rate and rhythm, +2/6 systolic murmur ABDOMEN: mildly distended, +bs, diffusely tender to light palpation UPPER EXTREMITIES: 2+ pulses, warm, well-perfused. No cyanosis. No clubbing. No peripheral edema. LOWER EXTREMITIES: 2+ pulses, warm, well-perfused. No calf tenderness. No peripheral edema. NEUROLOGICAL: Cranial nerves II-XII intact. PSYCHIATRIC: Cooperative. Good eye contact. Appropriate mood and affect. Laboratory Results - last 24 hr 01/25/18 01/25/18 01/25/18 06:00 06:00 06:00 WBC 21.4 H RBC 3.74 Hgb 11.7 Hct 33.2 MCV 88.8 MCH 31.3 MCHC 35.3 RDW 13.3 Plt Count 186 MPV 9.9 PT with INR 13.70 H INR 1.21 H Sodium 133 L Potassium 3.7 Chloride 100 Carbon Dioxide 20 L Anion Gap 13 BUN 12 Creatinine 0.6 Creat Clearance w eGFR > 60 POC Glucometer Random Glucose 107 H Calcium 7.8 L Phosphorus 1.8 L Magnesium 2.2 Total Bilirubin 0.8 AST 16 ALT 13 Alkaline Phosphatase 96 Total Protein 6.3 L Albumin 2.8 L 01/25/18 01/25/18 01/25/18 06:55 10:32 14:36 WBC RBC Hgb Hct MCV MCH MCHC RDW Plt Count MPV PT with INR INR Sodium Potassium Chloride Carbon Dioxide Anion Gap BUN Creatinine Creat Clearance w eGFR POC Glucometer 122.61284 128.65066 151.86990 Random Glucose Calcium Phosphorus Magnesium Total Bilirubin AST ALT Alkaline Phosphatase Total Protein Albumin 01/25/18 01/25/18 01/26/18 18:42 22:07 02:16 WBC RBC Hgb Hct MCV MCH MCHC RDW Plt Count MPV PT with INR INR Sodium Potassium Chloride Carbon Dioxide Anion Gap BUN Creatinine Creat Clearance w eGFR POC Glucometer 102 94 124 Random Glucose Calcium Phosphorus Magnesium Total Bilirubin AST ALT Alkaline Phosphatase Total Protein Albumin 01/26/18 06:40 WBC RBC Hgb Hct MCV MCH MCHC RDW Plt Count MPV PT with INR INR Sodium Potassium Chloride Carbon Dioxide Anion Gap BUN Creatinine Creat Clearance w eGFR POC Glucometer 127 Random Glucose Calcium Phosphorus Magnesium Total Bilirubin AST ALT Alkaline Phosphatase Total Protein Albumin Active Medications Generic Name Dose Route Start Last Admin Trade Name Freq PRN Reason Stop Dose Admin Amlodipine Besylate 10 mg 01/25/18 10:00 01/25/18 10:52 Norvasc - PO 10 mg DAILY [facility] Administration Bisacodyl 5 mg 01/25/18 10:00 01/25/18 10:51 Dulcolax - PO 5 mg DAILY [facility] Administration Cholecalciferol 1,000 unit 01/25/18 10:00 01/25/18 10:52 Vitamin D3 - PO 1,000 unit DAILY [facility] Administration Clopidogrel Bisulfate 75 mg 01/25/18 10:00 01/25/18 10:52 Plavix - PO 75 mg DAILY [facility] Administration Docusate Sodium 100 mg 01/25/18 10:00 01/25/18 10:51 Colace - PO 100 mg DAILY [facility] Administration Metronidazole 500 mg in 100 mls @ 100 mls/hr 01/25/18 01:00 01/26/18 02:15 Flagyl 500mg Premixed Ivpb - IVPB 100 mls/hr Q6H-IV [facility] Administration Levofloxacin 500 mg in 100 mls @ 100 mls/hr 01/25/18 10:00 01/25/18 12:07 Levaquin 500 Mg Premixed Ivpb - IVPB 100 mls/hr DAILY [facility] Administration Insulin Aspart 1 vial 01/24/18 22:00 01/26/18 06:47 Novolog Vial Sliding Scale - SQ Not Given Q4HPO [facility] Protocol Metoprolol Tartrate 50 mg 01/24/18 22:00 01/25/18 21:56 Lopressor - PO 50 mg HS [facility] Administration Metoprolol Tartrate 100 mg 01/25/18 10:00 01/25/18 10:52 Lopressor - PO 100 mg DAILY [facility] Administration Multivitamins/Minerals 1 each 01/25/18 10:00 01/25/18 10:52 Theragran-M PO 1 each DAILY [facility] Administration Ondansetron HCl 4 mg 01/25/18 13:55 Zofran Injection IVPUSH Q6H PRN NAUSEA AND/OR VOMITING Rosuvastatin Calcium 10 mg 01/24/18 22:00 01/25/18 21:56 Crestor - PO 10 mg HS [facility] Administration Valsartan 160 mg 01/24/18 22:00 01/25/18 21:56 Diovan - PO 160 mg BID [facility] Administration ASSESSMENT/PLAN: 82 yo F with a PMHx of CAD (s/p stent), "valve problem", HTN, HLD, DM, SCC, bleeding ulcers (10 years ago), and anemia, presented with 2 days of LLQ abdominal pain. #Sepsis 2/2 to Acute diverticulitis -CT A/P: Multiple sigmoid diverticuli, Fecal impaction, sigmoid colitis -Continue Flagyl, Levaquin (QTc 446) -Low residual diet -Zofran q6h -Adequate hydration -Miralax po qid, dulcolax 5 po daily -Colonoscopy in 4-6 weeks -GI consulted: Dr. Hector -lactic acid normal #DM -BGM -ISS #HTN/HLD -cont w/ home meds -Amlodipine 10mg -Metoprolol 150mg in AM, 50mg at night -160mg Diovan BID -Crestor 10 mg hs #PPX -lovenox #FEN -No fluids -continue to monitor -low residual diet Visit type - Emergency Visit Emergency Visit: Yes ED Registration Date: 01/24/18 Care time: The patient presented to the Emergency Department on the above date and was hospitalized for further evaluation of their emergent condition. - New Patient This patient is new to me today: No - Critical Care Critical Care patient: No
[2018-01-26 08:04] LABS: BASO % 0.1 % (0-2.0); EOS % 0.1 % (0-4.5); HEMATOCRIT 35.1 % (32.4-45.2); HEMOGLOBIN 12.1 GM/dL (10.7-15.3); LYMPH % 5.6 % (8-40); MCHC 34.6 g/dl (32.0-36.0); MEAN CELL VOLUME 89.6 fl (80-96); MEAN PLT VOLUME 10.2 fl (7.5-11.1); MONO % 7.6 % (3.8-10.2); NEUT % 86.6 % (42.8-82.8); PLATELET COUNT 233 K/MM3 (134-434); RBC 3.91 M/mm3 (3.60-5.2); RDW 13.4 % (11.6-15.6); WHITE BLOOD COUNT 23.2 K/mm3 (4.0-10.0)
[2018-01-26 08:53] LABS: CHLORIDE 106 mmol/L (98-107); POTASSIUM 3.5 mmol/L (3.5-5.1); SODIUM 139 mmol/L (136-145)
[2018-01-26 09:08] LABS: ANION GAP 18 (8-16); BLOOD UREA NITROGEN 13 mg/dL (7-18); CALCIUM 7.9 mg/dL (8.5-10.1); CO2 15 mmol/L (21-32); CREATININE 0.6 mg/dL (0.55-1.02); GLUCOSE,RANDOM 115 mg/dL (74-106); MAGNESIUM 2.1 mg/dL (1.8-2.4); PHOSPHOROUS 2.4 mg/dL (2.5-4.9)
[2018-01-26] MEDS: CHOLECALCIFEROL (VITAMIN D3) 1,000 UNIT TABLET (FP) PO SCH (09:42)
[2018-01-26] MEDS: METOPROLOL TARTRATE 50 MG TABLET (FP) PO SCH ×2 (09:42→22:09)
[2018-01-26] MEDS: amLODIPine BESYLATE 10 MG TABLET (FP) PO SCH (09:42)
[2018-01-26] MEDS: CLOPIDOGREL BISULFATE 75 MG TABLET (FP) PO SCH (09:42)
[2018-01-26] MEDS: DOCUSATE SODIUM 100 MG CAPSULE (FP) PO SCH (09:42)
[2018-01-26] MEDS: MULTIVITAMINS THER W-MINERALS COMBO TABLET (FP) PO SCH (09:42)
[2018-01-26] MEDS: VALSARTAN 160 MG TABLET (UD) PO SCH ×2 (09:42→22:09)
[2018-01-26] MEDS ORDERED: NAPH,MB-DB/K PH,MBDB POWDER PACKET PO ONE (10:45)
[2018-01-26] MEDS: POLYETHYLENE GLYCOL 3350 119 GM BTL PO SCH ×4 (11:35→22:11)
--- NOTE | 2018-01-26 14:23 | PN ---
Progress Note, Physician History of Present Illness: Awake, alert, oriented, Comfortable. Pain-free. Tolerating regular diet. Daughter at bedside. The patient had multiple BMs after MiraLAX. Although asymptomatic, white count is higher today, 23,000. The patient had no diarrhea symptoms on admission to suspect C. difficile colitis. - Current Medication List Current Medications: Active Medications Amlodipine Besylate (Norvasc -) 10 mg PO DAILY [facility] Last Admin: 01/26/18 09:42 Dose: 10 mg Cholecalciferol (Vitamin D3 -) 1,000 unit PO DAILY [facility] Last Admin: 01/26/18 09:42 Dose: 1,000 unit Clopidogrel Bisulfate (Plavix -) 75 mg PO DAILY [facility] Last Admin: 01/26/18 09:42 Dose: 75 mg Docusate Sodium (Colace -) 100 mg PO DAILY [facility] Last Admin: 01/26/18 09:42 Dose: 100 mg Enoxaparin Sodium (Lovenox -) 40 mg SQ DAILY [facility] Metronidazole (Flagyl 500mg Premixed Ivpb -) 500 mg in 100 mls @ 100 mls/hr IVPB Q6H-IV [facility] Last Admin: 01/26/18 09:57 Dose: 100 mls/hr Levofloxacin (Levaquin 500 Mg Premixed Ivpb -) 500 mg in 100 mls @ 100 mls/hr IVPB DAILY [facility] Last Admin: 01/26/18 11:34 Dose: 100 mls/hr Insulin Aspart (Novolog Vial Sliding Scale -) 1 vial SQ ACHS [facility] PRN Reason: Protocol Metoprolol Tartrate (Lopressor -) 50 mg PO [facility] Last Admin: 01/25/18 21:56 Dose: 50 mg Metoprolol Tartrate (Lopressor -) 100 mg PO DAILY [facility] Last Admin: 01/26/18 09:42 Dose: 100 mg Multivitamins/Minerals (Theragran-M) 1 each PO DAILY [facility] Last Admin: 01/26/18 09:42 Dose: 1 each Ondansetron HCl (Zofran Injection) 4 mg IVPUSH Q6H PRN PRN Reason: NAUSEA AND/OR VOMITING Polyethylene Glycol (Miralax (For Daily Use) -) 17 gm PO QID [facility] Last Admin: 01/26/18 11:35 Dose: 17 grams Rosuvastatin Calcium (Crestor -) 10 mg PO HS [facility] Last Admin: 01/25/18 21:56 Dose: 10 mg Valsartan (Diovan -) 160 mg PO BID [facility] Last Admin: 01/26/18 09:42 Dose: 160 mg - Objective Vital Signs: Vital Signs Temperature 97.8 F 01/26/18 06:39 Pulse Rate 104 H 01/26/18 06:39 Respiratory Rate 20 01/26/18 10:00 Blood Pressure 126/56 01/26/18 06:39 O2 Sat by Pulse Oximetry (%) 97 01/26/18 10:00 Constitutional: Yes: Well Nourished, No Distress, Calm Eyes: Yes: Conjunctiva Clear HENT: Yes: Atraumatic Neck: Yes: Supple Cardiovascular: No: Bradycardia, Tachycardia Respiratory: Yes: Regular Gastrointestinal: Yes: Normal Bowel Sounds, Soft. No: Ascites, Distention, Rectal Bleeding, Tenderness, Vomiting Neurological: Yes: Alert, Oriented Labs: CBC, BMP 01/26/18 06:40 01/26/18 06:40 INR, PTT INR 1.21 (0.82-1.09) H 01/25/18 06:00 Laboratory Last Values WBC 23.2 K/mm3 (4.0-10.0) H 01/26/18 06:40 RBC 3.91 M/mm3 (3.60-5.2) 01/26/18 06:40 Hgb 12.1 GM/dL (10.7-15.3) 01/26/18 06:40 Hct 35.1 % (32.4-45.2) 01/26/18 06:40 MCV 89.6 fl (80-96) 01/26/18 06:40 MCH 31.0 pg (25.7-33.7) 01/26/18 06:40 MCHC 34.6 g/dl (32.0-36.0) 01/26/18 06:40 RDW 13.4 % (11.6-15.6) 01/26/18 06:40 Plt Count 233 K/MM3 (134-434) D 01/26/18 06:40 MPV 10.2 fl (7.5-11.1) 01/26/18 06:40 Total Counted 100 01/24/18 15:00 Neutrophils % 86.6 % (42.8-82.8) H 01/26/18 06:40 Neutrophils % (Manual) 79.0 % (42.8-82.8) 01/24/18 15:00 Band Neutrophils % 11.0 % (0-10) H 01/24/18 15:00 Lymphocytes % 5.6 % (8-40) L 01/26/18 06:40 Lymphocytes % (Manual) 4.0 % (8-40) L 01/24/18 15:00 Monocytes % 7.6 % (3.8-10.2) 01/26/18 06:40 Monocytes % (Manual) 5 % (3.8-10.2) 01/24/18 15:00 Eosinophils % 0.1 % (0-4.5) 01/26/18 06:40 Eosinophils % (Manual) 1.0 % (0-4.5) 01/24/18 15:00 Basophils % 0.1 % (0-2.0) 01/26/18 06:40 Platelet Estimate Adequate 01/24/18 15:00 Platelet Comment Rare large platelets 01/24/18 15:00 PT with INR 13.70 SEC (9.98-11.88) H 01/25/18 06:00 INR 1.21 (0.82-1.09) H 01/25/18 06:00 Sodium 139 mmol/L (136-145) 01/26/18 06:40 Potassium 3.5 mmol/L (3.5-5.1) 01/26/18 06:40 Chloride 106 mmol/L (98-107) 01/26/18 06:40 Carbon Dioxide 15 mmol/L (21-32) L 01/26/18 06:40 Anion Gap 18 (8-16) H 01/26/18 06:40 BUN 13 mg/dL (7-18) 01/26/18 06:40 Creatinine 0.6 mg/dL (0.55-1.02) 01/26/18 06:40 Creat Clearance w eGFR > 60 (>60) 01/25/18 06:00 POC Glucometer 127 UNITS (80-120) 01/26/18 06:40 Random Glucose 115 mg/dL (74-106) H 01/26/18 06:40 Lactic Acid 1.2 mmol/L (0.0-2.0) 01/26/18 09:36 Calcium 7.9 mg/dL (8.5-10.1) L 01/26/18 06:40 Phosphorus 2.4 mg/dL (2.5-4.9) L 01/26/18 06:40 Magnesium 2.1 mg/dL (1.8-2.4) 01/26/18 06:40 Total Bilirubin 0.8 mg/dL (0.2-1.0) 01/25/18 06:00 AST 16 U/L (15-37) 01/25/18 06:00 ALT 13 U/L (12-78) 01/25/18 06:00 Alkaline Phosphatase 96 U/L (45-117) 01/25/18 06:00 Creatine Kinase 68 IU/L (26-192) 01/24/18 14:47 Troponin I < 0.02 ng/ml (0.00-0.05) 01/24/18 14:47 B-Natriuretic Peptide 4113.16 pg/ml (5-450) H 01/24/18 14:47 Total Protein 6.3 g/dl (6.4-8.2) L 01/25/18 06:00 Albumin 2.8 g/dl (3.4-5.0) L 01/25/18 06:00 Lipase 77 U/L (73-393) 01/24/18 14:47 Urine Color Lt. yellow 01/24/18 15:40 Urine Appearance Clear 01/24/18 15:40 Urine pH 5.5 (5.0-8.0) 01/24/18 15:40 Ur Specific [place] 1.020 (1.001-1.035) 01/24/18 15:40 Urine Protein 1+ (NEGATIVE) H 01/24/18 15:40 Urine Glucose (UA) Negative (NEGATIVE) 01/24/18 15:40 Urine Ketones 1+ (NEGATIVE) H 01/24/18 15:40 Urine Blood Trace-inta (NEGATIVE) 01/24/18 15:40 Urine Nitrite Negative (NEGATIVE) 01/24/18 15:40 Urine Bilirubin 1+ (<2.0 mg/dL) H 01/24/18 15:40 Urine Urobilinogen 0.2 mg/dL (0.2-1.0) 01/24/18 15:40 Ur Leukocyte Esterase Trace (NEGATIVE) 01/24/18 15:40 Urine WBC (Auto) 0-3 /hpf (3-5) 01/24/18 15:40 Urine RBC (Auto) 0-3 /hpf (0-3) 01/24/18 15:40 Ur Epithelial Cells Rare /HPF (FEW) 01/24/18 15:40 Urine Bacteria Few /hpf (NONE SEEN) 01/24/18 15:40 Urine Mucus 1+ 01/24/18 15:40 Problem List - Problems (1) Diverticulosis large intestine w/o perforation or abscess w/o bleeding Code(s): K57.30 - DVRTCLOS OF LG INT W/O PERFORATION OR ABSCESS W/O BLEEDING (2) Constipation Code(s): K59.00 - CONSTIPATION, UNSPECIFIED (3) Diverticulitis Code(s): K57.92 - DVTRCLI OF INTEST, PART UNSP, W/O PERF OR ABSCESS W/O BLEED Assessment/Plan Treat diverticulitis/stercoral colitis Adequate hydration Continue with MiraLAX daily at bedtime Low residual diet discussed with the patient and her son-in-law colonoscopy in 4-6 weeks ask hematology to see the patient for leukocytosis, which is not entirely consistent with patient's presentation and current state
--- NOTE | 2018-01-26 15:02 | CONSULT ---
Consult Consult Specialty:: hematology Reason for Consultation:: leucocytosis - History of Present Illness History of Present Illness: 82 yo F with pmhx. of CAD (s/p stent), Cardiac Valvular disorder, HTN, HLD, NIDDM, and SCC who presents with Left Lower Quadrant pain. States pain is 10/10 in severity. Also with associated constipation X 5 days. States last BM was 3 days ago. No nausea, vomiting, or diarrhea. No chest pain, pressure or shortness of breath. No fevers or chills. No urinary frequency or dysuria. - History Source History Provided By: Family Member, Medical Record - Alcohol/Substance Use Hx Alcohol Use: No - Smoking History Smoking history: Never smoked Home Medications - Allergies Allergies/Adverse Reactions: Allergies Allergy/AdvReac Type Severity Reaction Status Date / Time No Known Allergies Allergy Verified 01/24/18 14:27 - Home Medications Home Medications: Ambulatory Orders Amlodipine Besylate 10 mg PO DAILY 01/24/18 Bisacodyl [Laxative] 5 mg PO DAILY 01/24/18 Cholecalciferol (Vitamin D3) [Vitamin D3] 1,000 unit PO DAILY 01/24/18 Clopidogrel Bisulfate [Plavix -] 75 mg PO DAILY 01/24/18 Docusate Sodium 100 mg PO DAILY 01/24/18 Ferrous Sulfate 325 mg PO DAILY 01/24/18 Metformin HCl 500 mg PO BID 01/24/18 Metoprolol Tartrate 100 mg PO DAILY 01/24/18 Metoprolol Tartrate [Lopressor] 50 mg PO HS 01/24/18 Multivit-Min/Iron/Folic/Lutein [Centrum Silver Women Tablet] 1 each PO DAILY Psyllium Husk/Calcium Carb [Metamucil Plus Calcium Capsule] 1 each PO DAILY Rosuvastatin Calcium 10 mg PO DAILY 01/24/18 Sennosides [Senna Laxative] 2 tab PO DAILY 01/24/18 Valsartan 160 mg PO BID 01/24/18 Physical Exam Vital Signs: Vital Signs Temperature 97.8 F 01/26/18 06:39 Pulse Rate 104 H 01/26/18 06:39 Respiratory Rate 20 01/26/18 10:00 Blood Pressure 126/56 01/26/18 06:39 O2 Sat by Pulse Oximetry (%) 97 01/26/18 10:00 Constitutional: Yes: Well Nourished, No Distress Eyes: Yes: Conjunctiva Clear HENT: Yes: Atraumatic, Normocephalic Neck: Yes: Supple, Trachea Midline Cardiovascular: Yes: Regular Rate and Rhythm Respiratory: Yes: Regular, CTA Bilaterally Gastrointestinal: Yes: Normal Bowel Sounds, Soft, Abdomen, Obese Extremities: Yes: WNL Labs: CBC, BMP 01/26/18 06:40 01/26/18 06:40 Imaging - Results Cat Scan: Report Reviewed Assessment/Plan Leucocytosis: Likely reactive. Predominant neutrophils/bands---suggestive of underlying infectious/ inflammatory process other than a primary bone marrow process ( CT scan with also thickening noted, and pt is being considered for colonoscopy in 4-6weeks to r/o underlying neoplasm. ) Called 's office for a baseline CBC> and her white cells were 7600 ( total ) from 11/2017, indicating this is some consider ID consult and continue present antibiotics. for flow. stool softeners. d/w daughter over the phone
[2018-01-26] MEDS: ENOXAPARIN NA (PORCINE) 40 MG/0.4 ML DISP.SYRIN SQ SCH (15:13)
--- NOTE | 2018-01-26 18:41 | PN ---
Teaching Attending Note Name of Resident: Jorge A Soto ATTENDING PHYSICIAN STATEMENT I saw and evaluated the patient. I reviewed the resident's note and discussed the case with the resident. I agree with the resident's findings and plan as documented. SUBJECTIVE: OBJECTIVE: Vital Signs Period Temp Pulse Resp BP Sys/Tom Pulse Ox Last 24 Hr 97.8 F-98.9 F 92-104 18-20 120-132/50-68 97-100 Laboratory Results - last 24 hr 01/25/18 01/25/18 01/26/18 18:42 22:07 02:16 WBC RBC Hgb Hct MCV MCH MCHC RDW Plt Count MPV Neutrophils % Lymphocytes % Monocytes % Eosinophils % Basophils % Sodium Potassium Chloride Carbon Dioxide Anion Gap BUN Creatinine POC Glucometer 102 94 124 Random Glucose Lactic Acid Calcium Phosphorus Magnesium 01/26/18 01/26/18 01/26/18 06:40 06:40 06:40 WBC 23.2 H RBC 3.91 Hgb 12.1 Hct 35.1 MCV 89.6 MCH 31.0 MCHC 34.6 RDW 13.4 Plt Count 233 D MPV 10.2 Neutrophils % 86.6 H Lymphocytes % 5.6 L Monocytes % 7.6 Eosinophils % 0.1 Basophils % 0.1 Sodium 139 Potassium 3.5 Chloride 106 Carbon Dioxide 15 L Anion Gap 18 H BUN 13 Creatinine 0.6 POC Glucometer 127 Random Glucose 115 H Lactic Acid Calcium 7.9 L Phosphorus 2.4 L Magnesium 2.1 01/26/18 01/26/18 09:36 18:09 WBC RBC Hgb Hct MCV MCH MCHC RDW Plt Count MPV Neutrophils % Lymphocytes % Monocytes % Eosinophils % Basophils % Sodium Potassium Chloride Carbon Dioxide Anion Gap BUN Creatinine POC Glucometer 152 Random Glucose Lactic Acid 1.2 Calcium Phosphorus Magnesium Current Medications Generic Name Dose Route Start Last Admin Trade Name Freq PRN Reason Stop Dose Admin Amlodipine Besylate 10 mg 01/25/18 10:00 01/26/18 09:42 Norvasc - PO 10 mg DAILY [facility] Administration Cholecalciferol 1,000 unit 01/25/18 10:00 01/26/18 09:42 Vitamin D3 - PO 1,000 unit DAILY [facility] Administration Clopidogrel Bisulfate 75 mg 01/25/18 10:00 01/26/18 09:42 Plavix - PO 75 mg DAILY [facility] Administration Docusate Sodium 100 mg 01/25/18 10:00 01/26/18 09:42 Colace - PO 100 mg DAILY [facility] Administration Enoxaparin Sodium 40 mg 01/26/18 14:15 01/26/18 15:13 Lovenox - SQ 40 mg DAILY [facility] Administration Metronidazole 500 mg in 100 mls @ 100 mls/hr 01/25/18 01:00 01/26/18 15:13 Flagyl 500mg Premixed Ivpb - IVPB 100 mls/hr Q6H-IV [facility] Administration Levofloxacin 500 mg in 100 mls @ 100 mls/hr 01/25/18 10:00 01/26/18 11:34 Levaquin 500 Mg Premixed Ivpb - IVPB 100 mls/hr DAILY [facility] Administration Insulin Aspart 1 vial 01/26/18 16:30 01/26/18 18:09 Novolog Vial Sliding Scale - SQ 2 units ACHS [facility] Administration Protocol Metoprolol Tartrate 50 mg 01/24/18 22:00 01/25/18 21:56 Lopressor - PO 50 mg HS [facility] Administration Metoprolol Tartrate 100 mg 01/25/18 10:00 01/26/18 09:42 Lopressor - PO 100 mg DAILY [facility] Administration Multivitamins/Minerals 1 each 01/25/18 10:00 01/26/18 09:42 Theragran-M PO 1 each DAILY [facility] Administration Ondansetron HCl 4 mg 01/25/18 13:55 Zofran Injection IVPUSH Q6H PRN NAUSEA AND/OR VOMITING Polyethylene Glycol 17 gm 01/26/18 10:00 01/26/18 18:07 Miralax (For Daily Use) - PO 17 grams QID [facility] Administration Rosuvastatin Calcium 10 mg 01/24/18 22:00 01/25/18 21:56 Crestor - PO 10 mg HS [facility] Administration Valsartan 160 mg 01/24/18 22:00 01/26/18 09:42 Diovan - PO 160 mg BID [facility] Administration ASSESSMENT AND PLAN:
[2018-01-26] MEDS: ROSUVASTATIN CA 10 MG TABLET (FP) PO SCH (22:09)
[2018-01-27] MEDS: INSULIN SLIDING SCALE (NOVOLOG) 1 VIAL SQ SCH ×4 (06:19→22:09)
[2018-01-27 07:45] LABS: BASO % 0.3 % (0-2.0); EOS % 0.7 % (0-4.5); HEMATOCRIT 30.8 % (32.4-45.2); HEMOGLOBIN 10.7 GM/dL (10.7-15.3); LYMPH % 8.7 % (8-40); MCH 30.9 pg (25.7-33.7); MCHC 34.8 g/dl (32.0-36.0); MEAN CELL VOLUME 88.9 fl (80-96); MEAN PLT VOLUME 9.3 fl (7.5-11.1); MONO % 8.9 % (3.8-10.2); NEUT % 81.4 % (42.8-82.8); PLATELET COUNT 198 K/MM3 (134-434); RBC 3.46 M/mm3 (3.60-5.2); RDW 13.6 % (11.6-15.6); WHITE BLOOD COUNT 13.1 K/mm3 (4.0-10.0)
[2018-01-27 08:20] LABS: ANION GAP 10 (8-16); BLOOD UREA NITROGEN 13 mg/dL (7-18); CALCIUM 7.6 mg/dL (8.5-10.1); CHLORIDE 108 mmol/L (98-107); CO2 21 mmol/L (21-32); CREATININE 0.6 mg/dL (0.55-1.02); GLUCOSE,RANDOM 126 mg/dL (74-106); PHOSPHOROUS 1.8 mg/dL (2.5-4.9); POTASSIUM 3.5 mmol/L (3.5-5.1); SODIUM 139 mmol/L (136-145)
[2018-01-27] MEDS ORDERED: PT OWN MED DRAWER 7, Y5N ONE (09:20)
[2018-01-27] MEDS: ENOXAPARIN NA (PORCINE) 40 MG/0.4 ML DISP.SYRIN SQ SCH (09:23)
[2018-01-27] MEDS: amLODIPine BESYLATE 10 MG TABLET (FP) PO SCH (09:23)
[2018-01-27] MEDS: DOCUSATE SODIUM 100 MG CAPSULE (FP) PO SCH (09:23)
[2018-01-27] MEDS: MULTIVITAMINS THER W-MINERALS COMBO TABLET (FP) PO SCH (09:23)
[2018-01-27] MEDS: METOPROLOL TARTRATE 50 MG TABLET (FP) PO SCH ×2 (09:23→22:08)
[2018-01-27] MEDS: VALSARTAN 160 MG TABLET (UD) PO SCH ×2 (09:23→22:08)
[2018-01-27] MEDS: CLOPIDOGREL BISULFATE 75 MG TABLET (FP) PO SCH (09:23)
[2018-01-27] MEDS: CHOLECALCIFEROL (VITAMIN D3) 1,000 UNIT TABLET (FP) PO SCH (09:23)
[2018-01-27] MEDS: POLYETHYLENE GLYCOL 3350 119 GM BTL PO SCH ×4 (09:24→22:08)
[2018-01-27] MEDS ORDERED: NAPH,MB-DB/K PH,MBDB POWDER PACKET PO ONE (15:15)
[2018-01-27] MEDS ORDERED: metroNIDAZOLE 250 MG TABLET PO SCH ×2 (15:45→16:00)
--- NOTE | 2018-01-27 18:50 | PN ---
Progress Note (short form) - Note Progress Note: left a VM to the daughter per request and informed that the whit cells are trending down and the need for f.u as an OP with PMD upon d/c
--- NOTE | 2018-01-27 19:10 | PN ---
Teaching Attending Note Name of Resident: Jorge A Soto ATTENDING PHYSICIAN STATEMENT I saw and evaluated the patient. I reviewed the resident's note and discussed the case with the resident. I agree with the resident's findings and plan as documented. SUBJECTIVE: No fever or chills . has no abd pain. feels much better OBJECTIVE: NAD Cv : RRR, 3/6 SM at base Lungs: CTAB Ext: no edema Abd: soft, TTP in LLQ . no rebound tenderness or guarding ASSESSMENT AND PLAN: 82 y/o man with h/o CAD, s/p stenting, HTN, HLP, DM , and other medical problems who presented with abd pain and was found to have acute diverticulitis 1- Acute diverticulitis : improved - lost IV access - switch to po levaquin and flagyl - monitor WBX , not completely nL yet - cont miralax for constipation - colo in 4-6 weeks 2- leukocytosis : due to infection improved 3- CAD/HTN : cont plavix , BB ,dioban and norvasc Dispo : Possible dc tomorrow
--- NOTE | 2018-01-27 20:42 | PN ---
Physical Exam: SUBJECTIVE: Patient seen and examined Patient had 4 BM overnight. Patient feeling well this morning. OBJECTIVE: Vital Signs Period Temp Pulse Resp BP Sys/Tom Pulse Ox Last 24 Hr 97.5 F-98.6 F 80-118 18-20 113-150/55-74 97-97 GENERAL: Awake, alert, and fully oriented, in no acute distress. HEAD: Normal with no signs of trauma. EYES: Extraocular movements intact, sclera anicteric, conjunctiva clear. EARS, NOSE, THROAT: Oropharynx clear without exudates. Moist mucous membranes. NECK: supple without lymphadenopathy LUNGS: CTAB HEART: Regular rate and rhythm, +3/6 systolic murmur ABDOMEN: soft, nt, nd, +bs UPPER EXTREMITIES: 2+ pulses, warm, well-perfused. No cyanosis. No clubbing. No peripheral edema. LOWER EXTREMITIES: 2+ pulses, warm, well-perfused. No calf tenderness. No peripheral edema. NEUROLOGICAL: Cranial nerves II-XII intact. PSYCHIATRIC: Cooperative. Good eye contact. Appropriate mood and affect. Laboratory Results - last 24 hr 01/26/18 01/27/18 01/27/18 20:45 06:13 06:30 WBC 13.1 H D RBC 3.46 L Hgb 10.7 D Hct 30.8 L MCV 88.9 MCH 30.9 MCHC 34.8 RDW 13.6 Plt Count 198 MPV 9.3 Neutrophils % 81.4 Lymphocytes % 8.7 D Monocytes % 8.9 Eosinophils % 0.7 D Basophils % 0.3 Sodium Potassium Chloride Carbon Dioxide Anion Gap BUN Creatinine POC Glucometer 191 117 Random Glucose Calcium Phosphorus Magnesium 01/27/18 01/27/18 01/27/18 06:30 12:40 17:32 WBC RBC Hgb Hct MCV MCH MCHC RDW Plt Count MPV Neutrophils % Lymphocytes % Monocytes % Eosinophils % Basophils % Sodium 139 Potassium 3.5 Chloride 108 H Carbon Dioxide 21 Anion Gap 10 BUN 13 Creatinine 0.6 POC Glucometer 140 138 Random Glucose 126 H Calcium 7.6 L Phosphorus 1.8 L Magnesium 2.0 Active Medications Generic Name Dose Route Start Last Admin Trade Name Freq PRN Reason Stop Dose Admin Amlodipine Besylate 10 mg 01/25/18 10:00 01/27/18 09:23 Norvasc - PO 10 mg DAILY [facility] Administration Cholecalciferol 1,000 unit 01/25/18 10:00 01/27/18 09:23 Vitamin D3 - PO 1,000 unit DAILY [facility] Administration Clopidogrel Bisulfate 75 mg 01/25/18 10:00 01/27/18 09:23 Plavix - PO 75 mg DAILY [facility] Administration Docusate Sodium 100 mg 01/25/18 10:00 01/27/18 09:23 Colace - PO 100 mg DAILY [facility] Administration Enoxaparin Sodium 40 mg 01/26/18 14:15 01/27/18 09:23 Lovenox - SQ 40 mg DAILY [facility] Administration Insulin Aspart 1 vial 01/26/18 16:30 01/27/18 17:33 Novolog Vial Sliding Scale - SQ Not Given [facility] Protocol Levofloxacin 500 mg 01/28/18 06:00 Levaquin - PO DAILY@0600 [facility] Metoprolol Tartrate 50 mg 01/24/18 22:00 01/26/18 22:09 Lopressor - PO 50 mg HS [facility] Administration Metoprolol Tartrate 100 mg 01/25/18 10:00 01/27/18 09:23 Lopressor - PO 100 mg DAILY [facility] Administration Metronidazole 500 mg 01/27/18 15:47 Flagyl - PO TID [facility] Multivitamins/Minerals 1 each 01/25/18 10:00 01/27/18 09:23 Theragran-M PO 1 each DAILY [facility] Administration Ondansetron HCl 4 mg 01/25/18 13:55 Zofran Injection IVPUSH Q6H PRN NAUSEA AND/OR VOMITING Polyethylene Glycol 17 gm 01/26/18 10:00 01/27/18 17:31 Miralax (For Daily Use) - PO 17 grams QID [facility] Administration Rosuvastatin Calcium 10 mg 01/24/18 22:00 01/26/18 22:09 Crestor - PO 10 mg HS [facility] Administration Valsartan 160 mg 01/24/18 22:00 01/27/18 09:23 Diovan - PO 160 mg BID [facility] Administration ASSESSMENT/PLAN: 82 yo F with a PMHx of CAD (s/p stent), "valve problem", HTN, HLD, DM, SCC, bleeding ulcers (10 years ago), and anemia, presented with 2 days of LLQ abdominal pain. #Sepsis 2/2 to Acute diverticulitis -CT A/P: Multiple sigmoid diverticuli, Fecal impaction, sigmoid colitis -Continue Flagyl, Levaquin PO, IV access lost (QTc 446) -Low residual diet -Zofran q6h -Adequate hydration -Miralax po qid, dulcolax 5 po daily -Colonoscopy in 4-6 weeks -GI consulted: Dr. Hector -lactic acid normal #DM -BGM -ISS #HTN/HLD -cont w/ home meds -Amlodipine 10mg -Metoprolol 150mg in AM, 50mg at night -160mg Diovan BID -Crestor 10 mg hs #FEN -No fluids -continue to monitor -low residual diet #PPX -lovenox Visit type - Emergency Visit Emergency Visit: Yes ED Registration Date: 01/24/18 Care time: The patient presented to the Emergency Department on the above date and was hospitalized for further evaluation of their emergent condition. - New Patient This patient is new to me today: No - Critical Care Critical Care patient: No
[2018-01-27] MEDS ORDERED: INSULIN (NOVOLOG) ASPART 100 UNITS/ML 10ML VIAL ONE (22:07)
[2018-01-27] MEDS: metroNIDAZOLE 250 MG TABLET PO SCH (22:08)
[2018-01-27] MEDS: ROSUVASTATIN CA 10 MG TABLET (FP) PO SCH (22:08)
[2018-01-28] MEDS: metroNIDAZOLE 250 MG TABLET PO SCH (05:55)
[2018-01-28] MEDS ORDERED: PT OWN MED DRAWER 7, Y5N ONE (06:00)
[2018-01-28] MEDS: INSULIN SLIDING SCALE (NOVOLOG) 1 VIAL SQ SCH (06:38)
[2018-01-28 08:43] LABS: ANION GAP 10 (8-16); BLOOD UREA NITROGEN 15 mg/dL (7-18); CALCIUM 7.9 mg/dL (8.5-10.1); CHLORIDE 106 mmol/L (98-107); CO2 21 mmol/L (21-32); CREATININE 0.5 mg/dL (0.55-1.02); GLUCOSE,RANDOM 125 mg/dL (74-106); PHOSPHOROUS 2.5 mg/dL (2.5-4.9); SODIUM 137 mmol/L (136-145)
[2018-01-28 09:02] LABS: POTASSIUM 3.8 mmol/L (3.5-5.1)
[2018-01-28] MEDS: MULTIVITAMINS THER W-MINERALS COMBO TABLET (FP) PO SCH (09:03)
[2018-01-28] MEDS: DOCUSATE SODIUM 100 MG CAPSULE (FP) PO SCH (09:03)
[2018-01-28] MEDS: CLOPIDOGREL BISULFATE 75 MG TABLET (FP) PO SCH (09:04)
[2018-01-28] MEDS: CHOLECALCIFEROL (VITAMIN D3) 1,000 UNIT TABLET (FP) PO SCH (09:04)
[2018-01-28] MEDS: ENOXAPARIN NA (PORCINE) 40 MG/0.4 ML DISP.SYRIN SQ SCH (09:04)
[2018-01-28] MEDS: POLYETHYLENE GLYCOL 3350 119 GM BTL PO SCH (09:04)
[2018-01-28] MEDS: METOPROLOL TARTRATE 50 MG TABLET (FP) PO SCH (09:04)
[2018-01-28] MEDS: amLODIPine BESYLATE 10 MG TABLET (FP) PO SCH (09:04)
[2018-01-28] MEDS: VALSARTAN 160 MG TABLET (UD) PO SCH (09:04)
[2018-01-28 09:59] VITALS: BP 162/58; PULSE 103; TEMP 98.9
--- NOTE | 2018-01-28 11:37 | DS ---
Physical Exam: Selected Entries 01/28/18 09:00 Temperature 98.9 F Pulse Rate 103 H Respiratory 18 Rate Blood Pressure 162/58 O2 Sat by Pulse 97 Oximetry (%) Oxygen Delivery Room Air Method Laboratory Tests 01/24/18 01/24/18 01/24/18 14:47 15:00 15:40 WBC 22.8 H Hgb Hct Plt Count PT with INR INR Sodium Potassium Chloride Carbon Dioxide Anion Gap BUN Creatinine Random Glucose Lactic Acid Troponin I < 0.02 B-Natriuretic Peptide 4113.16 H Urine Ketones 1+ H Urine Bilirubin 1+ H Ur Leukocyte Esterase Trace Urine WBC (Auto) 0-3 Urine RBC (Auto) 0-3 01/25/18 01/25/18 01/26/18 06:00 06:00 06:40 WBC 21.4 H 23.2 H Hgb Hct Plt Count PT with INR 13.70 H INR 1.21 H Sodium Potassium Chloride Carbon Dioxide Anion Gap BUN Creatinine Random Glucose Lactic Acid Troponin I B-Natriuretic Peptide Urine Ketones Urine Bilirubin Ur Leukocyte Esterase Urine WBC (Auto) Urine RBC (Auto) 01/26/18 01/27/18 01/28/18 09:36 06:30 06:30 WBC 13.1 H D Hgb 10.7 D Hct 30.8 L Plt Count 198 PT with INR INR Sodium 137 Potassium 3.8 Chloride 106 Carbon Dioxide 21 Anion Gap 10 BUN 15 Creatinine 0.5 L Random Glucose 125 H Lactic Acid 1.2 Troponin I B-Natriuretic Peptide Urine Ketones Urine Bilirubin Ur Leukocyte Esterase Urine WBC (Auto) Urine RBC (Auto) Microbiology 01/24/18 15:40 Urine - Urine Clean Catch Urine Culture - Final NO GROWTH OBTAINED 01/25/18 10:22 Blood - Peripheral Venous Blood Culture - Preliminary NO GROWTH OBTAINED AFTER 72 HOURS, INCUBATION TO CONTINUE FOR 2 DAYS. 01/25/18 09:57 Blood - Peripheral Venous Blood Culture - Preliminary NO GROWTH OBTAINED AFTER 72 HOURS, INCUBATION TO CONTINUE FOR 2 DAYS. Imaging: CT abd/pelvis-- Extensive sigmoid colon diverticulosis and diverticulitis manifested by marked thickening of the sigmoid colon with extensive surrounding stranding and edema. No evidence of perforation at this time. No walled off collection seen. Thickening of the rectosigmoid junction distention of the colon proximally containing large amount of stool. Underlying stricture or neoplasm cannot be excluded. Shotty lymph nodes surrounding the sigmoid colon likely reactive. Status post hysterectomy. Severe aortoiliac mural calcifications as well as significant calcification of the aortic root. Correlate with echocardiography. CXR--Nonspecific hilar fullness HOSPITAL COURSE: Date of Admission:01/24/18 Date of Discharge: 01/28/18 Patient is an 82 yo F with a PMHx of CAD (s/p stent), "valve problem", HTN, HLD , DM, SCC, bleeding ulcers (10 years ago), and anemia, presented with 2 day onset of sharp, 10/10, constant LLQ abdominal pain that gets worse with movement. Patient underwent CT abd/pelvis and found to have acute diverticulitis. Patient admitted to med/surg. Patient treated with IV levaquin and flagyl, bowel regimen, and put on a low residual diet. Patient's symptoms improved and her abdominal pain resolved. Patient's wbc improved as well and was discharged home on 6 more days of flagyl/levaquin. She will need a colonoscopy in 4-6 weeks to evaluate her colon. She will have f/u with her PCP and GI doctor. Minutes to complete discharge: 45 Discharge Summary Reason For Visit: CONSTIPATION Condition: Stable - Instructions Diet, Activity, Other Instructions: You were treated for diverticulitis, an infection in your colon. You were treated with IV Flagyl and Levaquin from 01/24 to 01/27. You will need to complete the antibiotic course at home, total 10 days. Follow-up: We recommend you undergo a colonoscopy in 4-6 weeks to evaluate your colon. Contact information for Dr. Hector, the GI physician who saw in the hospital, has been provided for you. Please call to make an appointment. Please follow-up with your primary care physician in 1 week for post-hospital evaluation. Medications: Resume your home medications as prescribed. Continue taking your Senna and docusate, use Miralax as needed to maintain your bowel movements. Take Flagyl 500mg 1 tablet every 8 hours for 6 more days (you will end the course on 02/03) Take Levquin 750 mg 1 tablet daily for 6 more days (you will end the course on ) Diet: Information regarding a low residual diet has been provided for you. If you notice bloody stools, constipation lasting several days, abdominal distention, worsening abdominal pain, chest pain, worsening diarrhea, trouble breathing, fever or any new symptoms please return to the hospital. Referrals: Ramesh Hector MD [Staff Physician] - Christina Balderrama [Primary Care Provider] - Disposition: [facility]/HOME HEALTH CARE - Home Medications Comprehensive Discharge Medication List: Ambulatory Orders Amlodipine Besylate 10 mg PO DAILY 01/24/18 Bisacodyl [Laxative] 5 mg PO DAILY 01/24/18 Cholecalciferol (Vitamin D3) [Vitamin D3] 1,000 unit PO DAILY 01/24/18 Clopidogrel Bisulfate [Plavix -] 75 mg PO DAILY 01/24/18 Docusate Sodium 100 mg PO DAILY 01/24/18 Ferrous Sulfate 325 mg PO DAILY 01/24/18 Metformin HCl 500 mg PO BID 01/24/18 Metoprolol Tartrate 100 mg PO DAILY 01/24/18 Metoprolol Tartrate [Lopressor] 50 mg PO HS 01/24/18 Multivit-Min/Iron/Folic/Lutein [Centrum Silver Women Tablet] 1 each PO DAILY Psyllium Husk/Calcium Carb [Metamucil Plus Calcium Capsule] 1 each PO DAILY Rosuvastatin Calcium 10 mg PO DAILY 01/24/18 Sennosides [Senna Laxative] 2 tab PO DAILY 01/24/18 Valsartan 160 mg PO BID 01/24/18 levoFLOXacin [Levaquin] 750 mg PO DAILY #7 tab 01/28/18 metroNIDAZOLE [Flagyl -] 500 mg PO Q8H #21 tablet 01/28/18 metroNIDAZOLE [Flagyl -] 500 mg PO Q8H #21 tablet 01/28/18 This patient is new to me today: No Emergency Visit: Yes ED Registration Date: 01/24/18 Care time: The patient presented to the Emergency Department on the above date and was hospitalized for further evaluation of their emergent condition. Critical Care patient: No - Discharge Referral Referred to [facility] Med P.C.: No
[2018-01-28 12:20] LABS: MAGNESIUM 1.8 mg/dL (1.8-2.4)
--- NOTE | 2018-01-28 14:24 | PN ---
Teaching Attending Note Name of Resident: Jorge A Soto ATTENDING PHYSICIAN STATEMENT I saw and evaluated the patient. I reviewed the resident's note and discussed the case with the resident. I agree with the resident's findings and plan as documented. SUBJECTIVE: no abd pain, no fever or chills OBJECTIVE: NAD Cv: RRR, 3/6 SM at base Lungs: CTAB Ext: no edema Abd: soft, TTP in LLQ . no rebound tenderness or guarding ASSESSMENT AND PLAN: 82 y/o man with h/o CAD, s/p stenting, HTN, HLP, DM , and other medical problems who presented with abd pain and was found to have acute diverticulitis 1- Acute diverticulitis : improved. tolerated regular diet - cont levaquin and flagyl as outpt to complete total of 10 days of therapy - cont bowel regimen for constipation - colo in 4-6 weeks - f/u with GI - daughter refused repeat CBC 2- CAD/HTN : cont plavix , BB ,diovan and norvasc Dispo :dc home with [facility] today . ralph n was explained to her and to her daughter by Dr. Soto
--- NOTE | 2018-01-28 17:31 | PATH ---
Surgical Pathology Report Patient Name: ANTHONY ROGERS Med. Rec. #: [id number] /Age/Gender: 1935 (Age: 82) / F Account: [id number] Location: [facility] MED/SURG Taken: 01/27/2018 Received: 01/27/2018 Reported: 01/28/2018 Physicians: Lisa Monroy M.D. Specimen(s) Received PERIPHERAL BLOOD 2 LAV 2 GREEN Clinical History Leukocytosis Final Diagnosis COMPREHENSIVE FLOW CYTOMETRY performed and interpreted at [facility], [place], [place] ([id number]) INTERPRETATION: There is no evidence of B or T-cell proliferative disorders or increased blasts. Slightly left-shifted granulocytes, see comment. Comment: Correlation with molecular/FISH studies (BCR/ABL1, JAK2, CALR) is suggested in order to asess for peripheral blood involvement by a myeloproliferative process. FISH for BCR/ABL performed and interpreted at [facility], [place], [place] ([id number]) INTERPRETATION: No BCR/ABL1 t(9;22) translocation is detected. See [facility] report for details ([id number] and [id number]). Electronically Signed Kenna Valladares M.D. Gross Description Received are 2 green top tubes and 2 lavender top tubes of peripheral blood which are sent to [facility]. DL/01/27/2018 saudi/01/27/2018
== END 2018-01-28 09:39 | disposition home health service (06) | DRG 872 ==
LOC: JER 14:16 → JERBED 18:53 → J8W 01-25 15:55
PROVIDERS: ADMIT Internal Medicine; ATTEND Internal Medicine
DX: A41.9 Sepsis, unspecified organism (principal); E87.1 Hypo-osmolality and hyponatremia; K57.30 Diverticulosis of large intestine without perforation or abscess without bleeding; I10 Essential (primary) hypertension; I25.10 Atherosclerotic heart disease of native coronary artery without angina pectoris; E78.5 Hyperlipidemia, unspecified; E11.9 Type 2 diabetes mellitus without complications; Z79.84 Long term (current) use of oral hypoglycemic drugs; K59.00 Constipation, unspecified; D64.9 Anemia, unspecified; K52.9 Noninfective gastroenteritis and colitis, unspecified
CPT/HCPCS: 36415; 71045-TC-FY; 74176-TC; 80048; 80053; 81003; 81015; 82550; 82962; 83605; 83690; 83735; 83880; 84100; 84484; 85025; 85027; 85610; 87040; 87086; 88300-TC; 93005; 93010; 99285-25

== ENCOUNTER 2023-08-27 10:50 | Inpatient (IN) | payer MEDICARE, OTHER ==
[2023-08-27] MEDS ORDERED: ACETAMINOPHEN 500 MG TABLET (FP) PO ONE (11:20)
[2023-08-27] MEDS ORDERED: ACETAMINOPHEN 500 MG TABLET (FP) ONE (11:36)
[2023-08-27 12:53] LABS: BASO % 0.3 % (0-2.0); EOS % 0.3 % (0-4.5); HEMATOCRIT 35.3 % (32.4-45.2); LYMPH % 10.3 % (8-40); MCH 29.5 pg (25.7-33.7); MCHC 33.9 g/dl (32.0-36.0); MEAN CELL VOLUME 86.9 fl (80-96); MEAN PLT VOLUME 8.8 fl (7.5-11.1); MONO % 6.6 % (3.8-10.2); NEUT % 82.5 % (42.8-82.8); PLATELET COUNT 272 10^3/uL (134-434); RBC 4.06 M/mm3 (3.60-5.2); RDW 14.8 % (11.6-15.6)
[2023-08-27] MEDS ORDERED: morphine CARPU-JECT 2 MG/1 ML DISP.SYRIN IVPUSH ONE (13:15)
[2023-08-27 13:24] LABS: POTASSIUM 3.3 mmol/L (3.5-5.1)
[2023-08-27 13:26] LABS: BLOOD UREA NITROGEN 12.7 mg/dL (7-18); CALCIUM 9.1 mg/dL (8.5-10.1)
[2023-08-27 13:27] LABS: ALBUMIN 3.2 g/dl (3.4-5.0)
[2023-08-27 13:30] LABS: CREATININE 0.7 mg/dL (0.55-1.3)
[2023-08-27 13:31] LABS: TOT PROT 7.3 g/dl (6.4-8.2)
[2023-08-27 14:37] LABS: EPI CELLS >36 /uL (0-25.1); HYALINE CASTS 0 /uL (0-3.1); PH,URINE 7.5 (5.0-8.0); URINE APPEARANCE CLEAR; URINE BACTERIA 1689 /uL (0-1359); URINE BILIRUBIN NEGATIVE (NEGATIVE); URINE COLOR YELLOW; URINE GLUCOSE (UA) NEGATIVE (NEGATIVE); URINE KETONE TRACE (NEGATIVE); URINE LEUK ESTERASE 3+ (NEGATIVE); URINE NITRITE NEGATIVE (NEGATIVE); URINE PROTEIN 1+ (NEGATIVE); URINE UROBILINOGEN 0.2 mg/dL (0.2-1.0); URINE WBC 52 /uL (0-25.8)
[2023-08-27 15:03] LABS: URINE RBC 26 /uL (0-23.9)
[2023-08-27] MEDS: INSULIN SLIDING SCALE (NOVOLOG) 1 VIAL SQ SCH ×2 (16:13→22:34)
[2023-08-27] MEDS ORDERED: ACETAMINOPHEN 1000 MG/100 ML BAG IVPB PRN ×2 (18:00)
[2023-08-27 21:52] LABS: EPI CELLS 3 /uL (0-25.1); HYALINE CASTS 1 /uL (0-3.1); URINE APPEARANCE CLOUDY; URINE BACTERIA 210 /uL (0-1359); URINE BILIRUBIN NEGATIVE (NEGATIVE); URINE COLOR YELLOW; URINE GLUCOSE (UA) NEGATIVE (NEGATIVE); URINE KETONE TRACE (NEGATIVE); URINE LEUK ESTERASE 3+ (NEGATIVE); URINE NITRITE NEGATIVE (NEGATIVE); URINE PROTEIN TRACE (NEGATIVE); URINE RBC 22 /uL (0-23.9); URINE UROBILINOGEN 0.2 mg/dL (0.2-1.0); URINE WBC 1306 /uL (0-25.8)
[2023-08-27] MEDS: ROSUVASTATIN CA 10 MG TABLET PO SCH (22:31)
[2023-08-27] MEDS: METOPROLOL TARTRATE 50 MG TABLET (FP) PO SCH (22:31)
[2023-08-27] MEDS: POTASSIUM CHLORIDE ORAL LIQUID 20 MEQ/15 ML PO SCH (22:32)
[2023-08-27] MEDS: APIXABAN 2.5 MG TABLET PO SCH (22:34)
[2023-08-27] MEDS: LIDOCAINE PATCH REMOVAL MC SCH (22:34)
[2023-08-27 23:54] LABS: YEAST PRESENT (NEGATIVE)
[2023-08-28] MEDS: INSULIN SLIDING SCALE (NOVOLOG) 1 VIAL SQ SCH ×4 (07:11→22:22)
[2023-08-28 09:53] LABS: BASO % 0.4 % (0-2.0); EOS % 0.3 % (0-4.5); HEMATOCRIT 33.7 % (32.4-45.2); HEMOGLOBIN 11.9 GM/dL (10.7-15.3); LYMPH % 11.3 % (8-40); MCH 30.7 pg (25.7-33.7); MCHC 35.3 g/dl (32.0-36.0); MEAN PLT VOLUME 9.2 fl (7.5-11.1); MONO % 5.6 % (3.8-10.2); NEUT % 82.4 % (42.8-82.8); PLATELET COUNT 271 10^3/uL (134-434); RBC 3.88 M/mm3 (3.60-5.2); RDW 15.3 % (11.6-15.6)
[2023-08-28 09:54] LABS: INR 1.52 (0.83-1.09); PROTHROMBIN TIME (PATIENT) 17.6 SEC (9.7-13.0)
[2023-08-28 09:57] LABS: ACTIVATED PTT 29.8 SECONDS (25.2-36.5)
[2023-08-28] MEDS ORDERED: ENOXAPARIN NA (PORCINE) 40 MG/0.4 ML DISP.SYRIN SQ SCH (10:00)
[2023-08-28 10:09] LABS: POTASSIUM 4.1 mmol/L (3.5-5.1)
[2023-08-28 10:18] LABS: ALBUMIN 2.9 g/dl (3.4-5.0); BLOOD UREA NITROGEN 11.5 mg/dL (7-18); MAGNESIUM 2.1 mg/dL (1.8-2.4)
[2023-08-28 10:19] LABS: CALCIUM 8.4 mg/dL (8.5-10.1)
[2023-08-28 10:21] LABS: CREATININE 0.6 mg/dL (0.55-1.3); PHOSPHOROUS 2.8 mg/dL (2.5-4.9)
[2023-08-28 10:22] LABS: BILIRUBIN,TOTAL 0.8 mg/dL (0.2-1); TOT PROT 6.8 g/dl (6.4-8.2)
[2023-08-28] MEDS: BISACODYL 5 MG TABLET.DR (FP) PO SCH (10:25)
[2023-08-28] MEDS: CHOLECALCIFEROL (VIT D3) 1,000 UNIT (25 MCG) TABLET PO SCH (10:25)
[2023-08-28] MEDS: SENNOSIDES 8.6MG TABLET (FP) PO SCH (10:25)
[2023-08-28] MEDS: APIXABAN 2.5 MG TABLET PO SCH ×2 (10:25→22:10)
[2023-08-28] MEDS: FUROSEMIDE 20 MG TABLET (FP) PO SCH (10:25)
[2023-08-28] MEDS: LIDOCAINE 4% PATCH TP SCH ×2 (10:26→10:27)
[2023-08-28] MEDS: METOPROLOL TARTRATE 50 MG TABLET (FP) PO SCH ×2 (10:26→22:22)
[2023-08-28] MEDS: CEFTRIAXONE 1 GM in DEXTROSE 5%-WATER - 50 ML IVPB SCH (10:26)
[2023-08-28] MEDS: POTASSIUM CHLORIDE ORAL LIQUID 20 MEQ/15 ML PO SCH (10:26)
[2023-08-28] MEDS: POLYETHYLENE GLYCOL (HEALTHYLAX) 3350 17 GM PACKET PO SCH ×2 (13:14→22:10)
[2023-08-28] MEDS ORDERED: ACETAMINOPHEN 1000 MG/100 ML BAG IVPB PRN (15:41)
[2023-08-28] MEDS ORDERED: ACETAMINOPHEN 325 MG TABLET (FP) PO PRN (15:41)
[2023-08-28] MEDS ORDERED: INSULIN (NOVOLOG) ASPART 100 UNITS/ML 10ML VIAL ONE (16:27)
[2023-08-28] MEDS: AMINO ACIDS/PROTEIN HYDROLYS 30 ML LIQUID.PKT PO SCH (16:44)
[2023-08-28] MEDS ORDERED: QUEtiapine FUMARATE 25 MG TABLET PO ONE (17:29)
[2023-08-28] MEDS: LIDOCAINE PATCH REMOVAL MC SCH (22:10)
[2023-08-28] MEDS: ROSUVASTATIN CA 10 MG TABLET PO SCH (22:10)
[2023-08-29] MEDS: INSULIN SLIDING SCALE (NOVOLOG) 1 VIAL SQ SCH ×4 (06:17→21:01)
[2023-08-29] MEDS ORDERED: INSULIN (NOVOLOG) ASPART 100 UNITS/ML 10ML VIAL ONE ×2 (08:18→20:58)
[2023-08-29] MEDS: AMINO ACIDS/PROTEIN HYDROLYS 30 ML LIQUID.PKT PO SCH ×2 (08:20→16:53)
[2023-08-29] MEDS: POLYETHYLENE GLYCOL (HEALTHYLAX) 3350 17 GM PACKET PO SCH ×2 (10:35→21:00)
[2023-08-29] MEDS: FUROSEMIDE 20 MG TABLET (FP) PO SCH (10:35)
[2023-08-29] MEDS: SENNOSIDES 8.6MG TABLET (FP) PO SCH (10:35)
[2023-08-29] MEDS: BISACODYL 5 MG TABLET.DR (FP) PO SCH (10:35)
[2023-08-29] MEDS: CHOLECALCIFEROL (VIT D3) 1,000 UNIT (25 MCG) TABLET PO SCH (10:35)
[2023-08-29] MEDS: CEFTRIAXONE 1 GM in DEXTROSE 5%-WATER - 50 ML IVPB SCH (10:35)
[2023-08-29] MEDS: APIXABAN 2.5 MG TABLET PO SCH ×2 (10:35→21:01)
[2023-08-29] MEDS: METOPROLOL TARTRATE 50 MG TABLET (FP) PO SCH ×2 (10:35→21:01)
[2023-08-29] MEDS: LIDOCAINE 4% PATCH TP SCH (10:36)
[2023-08-29 13:37] VITALS: BMI 15.9
[2023-08-29] MEDS: LIDOCAINE PATCH REMOVAL MC SCH (21:01)
[2023-08-29] MEDS: ROSUVASTATIN CA 10 MG TABLET PO SCH (21:01)
[2023-08-30] MEDS: INSULIN SLIDING SCALE (NOVOLOG) 1 VIAL SQ SCH ×4 (06:37→22:17)
[2023-08-30] MEDS: LIDOCAINE 4% PATCH TP SCH (10:18)
[2023-08-30] MEDS: AMINO ACIDS/PROTEIN HYDROLYS 30 ML LIQUID.PKT PO SCH ×2 (10:18→17:25)
[2023-08-30] MEDS: FUROSEMIDE 20 MG TABLET (FP) PO SCH (10:19)
[2023-08-30] MEDS: CEFTRIAXONE 1 GM in DEXTROSE 5%-WATER - 50 ML IVPB SCH (10:19)
[2023-08-30] MEDS: APIXABAN 2.5 MG TABLET PO SCH ×2 (10:19→22:15)
[2023-08-30] MEDS: BISACODYL 5 MG TABLET.DR (FP) PO SCH ×2 (10:19→22:15)
[2023-08-30] MEDS: SENNOSIDES 8.6MG TABLET (FP) PO SCH (10:19)
[2023-08-30] MEDS: POLYETHYLENE GLYCOL (HEALTHYLAX) 3350 17 GM PACKET PO SCH ×2 (10:19→22:14)
[2023-08-30] MEDS: CHOLECALCIFEROL (VIT D3) 1,000 UNIT (25 MCG) TABLET PO SCH (10:19)
[2023-08-30] MEDS: METOPROLOL TARTRATE 50 MG TABLET (FP) PO SCH ×2 (10:20→22:15)
[2023-08-30] MEDS ORDERED: POLYETHYLENE GLYCOL (HEALTHYLAX) 3350 17 GM PACKET PO SCH (15:30)
[2023-08-30] MEDS ORDERED: POLYETHYLENE GLYCOL (HEALTHYLAX) 3350 17 GM PACKET PO ONE (15:30)
[2023-08-30] MEDS ORDERED: SENNOSIDES 8.6MG TABLET (FP) PO SCH (22:00)
[2023-08-30] MEDS: LIDOCAINE PATCH REMOVAL MC SCH (22:14)
[2023-08-30] MEDS: ROSUVASTATIN CA 10 MG TABLET PO SCH (22:16)
[2023-08-31] MEDS: INSULIN SLIDING SCALE (NOVOLOG) 1 VIAL SQ SCH ×4 (07:00→21:20)
[2023-08-31 08:44] LABS: HEMATOCRIT 35.7 % (32.4-45.2); HEMOGLOBIN 11.8 GM/dL (10.7-15.3); MCH 29.3 pg (25.7-33.7); MEAN CELL VOLUME 88.9 fl (80-96); MEAN PLT VOLUME 8.8 fl (7.5-11.1); PLATELET COUNT 359 10^3/uL (134-434); RBC 4.02 M/mm3 (3.60-5.2); RDW 15.7 % (11.6-15.6); WHITE BLOOD COUNT 10.9 K/mm3 (4.0-10.0)
[2023-08-31 08:49] LABS: POTASSIUM 3.7 mmol/L (3.5-5.1)
[2023-08-31 08:51] LABS: CALCIUM 8.8 mg/dL (8.5-10.1)
[2023-08-31 08:52] LABS: BLOOD UREA NITROGEN 34.5 mg/dL (7-18); MAGNESIUM 2.2 mg/dL (1.8-2.4)
[2023-08-31 08:55] LABS: CREATININE 0.9 mg/dL (0.55-1.3)
[2023-08-31 08:57] LABS: BILIRUBIN,TOTAL 0.5 mg/dL (0.2-1); TOT PROT 7.2 g/dl (6.4-8.2)
[2023-08-31] MEDS: AMINO ACIDS/PROTEIN HYDROLYS 30 ML LIQUID.PKT PO SCH ×2 (09:06→17:16)
[2023-08-31] MEDS: POLYETHYLENE GLYCOL (HEALTHYLAX) 3350 17 GM PACKET PO SCH ×2 (09:07→21:24)
[2023-08-31] MEDS: APIXABAN 2.5 MG TABLET PO SCH ×2 (09:07→21:24)
[2023-08-31] MEDS: CHOLECALCIFEROL (VIT D3) 1,000 UNIT (25 MCG) TABLET PO SCH (09:07)
[2023-08-31] MEDS: METOPROLOL TARTRATE 50 MG TABLET (FP) PO SCH ×2 (09:07→21:23)
[2023-08-31] MEDS: LIDOCAINE 4% PATCH TP SCH (09:07)
[2023-08-31] MEDS: FUROSEMIDE 20 MG TABLET (FP) PO SCH (09:07)
[2023-08-31 12:18] LABS: ANISOCYTOSIS 0; MACROCYTOSIS 0
[2023-08-31] MEDS ORDERED: INSULIN (NOVOLOG) ASPART 100 UNITS/ML 10ML VIAL ONE (21:22)
[2023-08-31] MEDS: BISACODYL 5 MG TABLET.DR (FP) PO SCH (21:23)
[2023-08-31] MEDS: ROSUVASTATIN CA 10 MG TABLET PO SCH (21:24)
[2023-08-31] MEDS: LIDOCAINE PATCH REMOVAL MC SCH (21:24)
[2023-08-31] MEDS: SENNOSIDES 8.6MG TABLET (FP) PO SCH (21:27)
[2023-09-01] MEDS: INSULIN SLIDING SCALE (NOVOLOG) 1 VIAL SQ SCH ×4 (06:58→21:35)
[2023-09-01 07:48] LABS: HEMATOCRIT 32.8 % (32.4-45.2); MCH 29.8 pg (25.7-33.7); MCHC 33.5 g/dl (32.0-36.0); MEAN CELL VOLUME 88.9 fl (80-96); MEAN PLT VOLUME 8.6 fl (7.5-11.1); PLATELET COUNT 335 10^3/uL (134-434); RBC 3.69 M/mm3 (3.60-5.2); RDW 15.3 % (11.6-15.6); WHITE BLOOD COUNT 9.5 K/mm3 (4.0-10.0)
[2023-09-01 08:02] LABS: POTASSIUM 3.6 mmol/L (3.5-5.1)
[2023-09-01 08:08] LABS: CALCIUM 8.5 mg/dL (8.5-10.1)
[2023-09-01 08:09] LABS: ALBUMIN 2.8 g/dl (3.4-5.0); MAGNESIUM 2.1 mg/dL (1.8-2.4)
[2023-09-01 08:11] LABS: CREATININE 0.7 mg/dL (0.55-1.3)
[2023-09-01 08:13] LABS: BILIRUBIN,TOTAL 0.5 mg/dL (0.2-1); TOT PROT 6.5 g/dl (6.4-8.2)
[2023-09-01 08:28] LABS: ANISOCYTOSIS 1+; MACROCYTOSIS 0
[2023-09-01] MEDS: AMINO ACIDS/PROTEIN HYDROLYS 30 ML LIQUID.PKT PO SCH ×2 (08:45→16:55)
[2023-09-01] MEDS: METOPROLOL TARTRATE 50 MG TABLET (FP) PO SCH ×2 (10:37→21:27)
[2023-09-01] MEDS: FUROSEMIDE 20 MG TABLET (FP) PO SCH (10:37)
[2023-09-01] MEDS: CHOLECALCIFEROL (VIT D3) 1,000 UNIT (25 MCG) TABLET PO SCH (10:37)
[2023-09-01] MEDS: APIXABAN 2.5 MG TABLET PO SCH ×2 (10:37→21:27)
[2023-09-01] MEDS: LIDOCAINE 4% PATCH TP SCH (10:38)
[2023-09-01] MEDS: POLYETHYLENE GLYCOL (HEALTHYLAX) 3350 17 GM PACKET PO SCH ×2 (10:38→21:28)
[2023-09-01] MEDS ORDERED: METOPROLOL TARTRATE 50 MG TABLET (FP) PO ONE (12:01)
[2023-09-01] MEDS ORDERED: LACTATED RINGERS SOLUTION 1,000 ML/1,000 ML INFUS.BAG IV SCH (12:15)
[2023-09-01 15:50] LABS: EPI CELLS 7 /uL (0-25.1); HYALINE CASTS 0 /uL (0-3.1); PH,URINE 6.5 (5.0-8.0); URINE APPEARANCE CLEAR; URINE BACTERIA 7 /uL (0-1359); URINE BILIRUBIN NEGATIVE (NEGATIVE); URINE COLOR YELLOW; URINE GLUCOSE (UA) NEGATIVE (NEGATIVE); URINE KETONE NEGATIVE (NEGATIVE); URINE LEUK ESTERASE 1+ (NEGATIVE); URINE NITRITE NEGATIVE (NEGATIVE); URINE PROTEIN NEGATIVE (NEGATIVE); URINE RBC 21 /uL (0-23.9); URINE UROBILINOGEN 0.2 mg/dL (0.2-1.0); URINE WBC 97 /uL (0-25.8)
[2023-09-01] MEDS ORDERED: QUEtiapine FUMARATE 25 MG TABLET PO ONE (20:15)
[2023-09-01] MEDS: BISACODYL 5 MG TABLET.DR (FP) PO SCH (21:27)
[2023-09-01] MEDS: ROSUVASTATIN CA 10 MG TABLET PO SCH (21:27)
[2023-09-01] MEDS: SENNOSIDES 8.6MG TABLET (FP) PO SCH (21:28)
[2023-09-01] MEDS ORDERED: INSULIN (NOVOLOG) ASPART 100 UNITS/ML 10ML VIAL ONE (21:33)
[2023-09-01] MEDS: LIDOCAINE PATCH REMOVAL MC SCH (21:58)
[2023-09-02] MEDS: INSULIN SLIDING SCALE (NOVOLOG) 1 VIAL SQ SCH ×3 (06:20→17:03)
[2023-09-02] MEDS: LIDOCAINE 4% PATCH TP SCH (09:09)
[2023-09-02] MEDS: CHOLECALCIFEROL (VIT D3) 1,000 UNIT (25 MCG) TABLET PO SCH (09:09)
[2023-09-02] MEDS: AMINO ACIDS/PROTEIN HYDROLYS 30 ML LIQUID.PKT PO SCH ×2 (09:09→17:01)
[2023-09-02] MEDS: APIXABAN 2.5 MG TABLET PO SCH (09:10)
[2023-09-02] MEDS: FUROSEMIDE 20 MG TABLET (FP) PO SCH (09:10)
[2023-09-02] MEDS: METOPROLOL TARTRATE 50 MG TABLET (FP) PO SCH (09:10)
[2023-09-02] MEDS: POLYETHYLENE GLYCOL (HEALTHYLAX) 3350 17 GM PACKET PO SCH (09:11)
[2023-09-02 09:33] LABS: HEMATOCRIT 32.3 % (32.4-45.2); HEMOGLOBIN 10.4 GM/dL (10.7-15.3); MCH 28.6 pg (25.7-33.7); MCHC 32.1 g/dl (32.0-36.0); MEAN CELL VOLUME 89.2 fl (80-96); MEAN PLT VOLUME 8.9 fl (7.5-11.1); PLATELET COUNT 325 10^3/uL (134-434); RBC 3.62 M/mm3 (3.60-5.2); RDW 15.1 % (11.6-15.6); WHITE BLOOD COUNT 11.3 K/mm3 (4.0-10.0)
[2023-09-02 09:58] LABS: POTASSIUM 4.2 mmol/L (3.5-5.1)
[2023-09-02 10:14] LABS: ALBUMIN 2.8 g/dl (3.4-5.0); BLOOD UREA NITROGEN 26.3 mg/dL (7-18); CALCIUM 8.5 mg/dL (8.5-10.1); MAGNESIUM 2.3 mg/dL (1.8-2.4)
[2023-09-02 10:17] LABS: CREATININE 0.6 mg/dL (0.55-1.3)
[2023-09-02 10:18] LABS: ANISOCYTOSIS 2+; MACROCYTOSIS 0; OVALOCYTE 1+
[2023-09-02 10:19] LABS: BILIRUBIN,TOTAL 0.5 mg/dL (0.2-1); TOT PROT 6.3 g/dl (6.4-8.2)
[2023-09-02] MEDS ORDERED: INSULIN (NOVOLOG) ASPART 100 UNITS/ML 10ML VIAL ONE (17:09)
[2023-09-02 18:31] VITALS: BP 144/79; PULSE 98; RESP 18; TEMP 97.7
== END 2023-09-02 20:17 | DRG 551 ==
LOC: JER 10:50 → JERBED 13:53 → UNDOADMOB 13:53 → INTOOBSV 13:53 → JERBED 14:27 → J6S 15:05 → J7W 18:26 → OBSVTOIN 09-01 13:52
PROVIDERS: ADMIT Internal Medicine; ATTEND Internal Medicine
DX: S32.19XA Other fracture of sacrum, initial encounter for closed fracture (principal); E43 Unspecified severe protein-calorie malnutrition; U07.1 COVID-19; G93.41 Metabolic encephalopathy; S32.058A Other fracture of fifth lumbar vertebra, initial encounter for closed fracture; N39.0 Urinary tract infection, site not specified; N13.30 Unspecified hydronephrosis; R64 Cachexia; Z68.1 Body mass index [BMI] 19.9 or less, adult; I50.32 Chronic diastolic (congestive) heart failure; M25.559 Pain in unspecified hip; I25.10 Atherosclerotic heart disease of native coronary artery without angina pectoris; E78.5 Hyperlipidemia, unspecified; I48.91 Unspecified atrial fibrillation; E11.9 Type 2 diabetes mellitus without complications; K59.00 Constipation, unspecified; E87.6 Hypokalemia; N28.89 Other specified disorders of kidney and ureter; W01.0XXA Fall on same level from slipping, tripping and stumbling without subsequent striking against object, initial encounter; Y92.098 Other place in other non-institutional residence as the place of occurrence of the external cause; Y99.9 Unspecified external cause status; Z78.9 Other specified health status; R00.0 Tachycardia, unspecified; K57.90 Diverticulosis of intestine, part unspecified, without perforation or abscess without bleeding; I11.0 Hypertensive heart disease with heart failure
CPT/HCPCS: 0241U-QW; 36415; 71045-TC-FY; 72131-TC; 72148-TC; 72192-TC; 80053; 81003; 82962; 83735; 84100; 84443; 85025; 85379; 85610; 85730; 86850; 86900; 86901; 87040; 87086; 87635; 93005; 93010; 93306-TC; 97116-GP; 99285-25; G0378